=== PATIENT | male | born 1985 | race Two or more races ===

== ENCOUNTER 2020-10-19 10:13 | Outpatient (REF) | payer OTHER, SELFPAY ==
[2020-10-19 11:51] LABS: MANUAL DIFF FLAG NO
[2020-10-19 11:54] LABS: Basophils Absolute Auto 0.1 X10*3/uL (0.0-0.2); Eosinophils Absolute Auto 0.1 X10*3/uL (0.0-0.4); Eosinophils Percent Auto 1.5 % (0-4); Hematocrit 48.6 % (42-52); Hemoglobin 15.6 g/dl (14.0-18.0); Imm Gran Abs Auto 0.01 X10*3/uL (0.00-0.03); Imm Gran Pct Auto 0.2 % (0.0-0.4); Lymphocytes Absolute Auto 2.2 X10*3/uL (1.2-4.9); Lymphocytes Percent Auto 37.1 % (20-40); Mean Corpuscular HGB Conc 32.1 g/dl (31.0-36.0); Mean Corpuscular Hemoglobin 27.9 pg (27.0-33.0); Mean Corpuscular Volume 86.9 fL (80-98); Mean Platelet Volume 11.5 fL (9.4-12.4); Monocytes Absolute Auto 0.5 X10*3/uL (0.1-1.2); Monocytes Percent Auto 7.6 % (2-11); Neutrophils Absolute Auto 3.1 X10*3/uL (2.0-8.3); Neutrophils Percent Auto 52.6 % (45-73); Platelet Count 199 X10*3/uL (160-400); Red Blood Count 5.59 X10*6/uL (4.60-5.80); Red Cell Distribution Width 13.7 % (11.0-16.0)
[2020-10-19 12:15] LABS: Alanine Aminotransferase 31 U/L (0-40); Albumin Level 4.4 g/dL (3.5-5.0); Alkaline Phosphatase 65 U/L (39-117); Anion Gap 13 (12-20); Aspartate Amino Transferase 22 U/L (5-37); Bilirubin Total 0.6 mg/dL (0.0-1.0); Blood Urea Nitrogen 11 mg/dL (9-16); Calcium 9.5 mg/dL (8.4-10.2); Carbon Dioxide 29 mmol/L (22-29); Chloride 103 mmol/L (96-108); Cholesterol 207 mg/dL; Estimated Glomerular Filt Rate > 60; Glucose Fasting 98 mg/dL (60-99); HDL Cholesterol 33 mg/dL; LDL Cholesterol Calculated 159 mg/dl; Potassium 4.3 mmol/L (3.3-5.1); Sodium 141 mmol/L (135-145); Total Protein 7.1 g/dL (6.5-8.0); Triglycerides 79 mg/dL
[2020-10-23 17:11] LABS: Vitamin D 25-OH, D2 <4 ng/mL; Vitamin D 25-OH, D3 16 ng/mL; Vitamin D 25-OH, Total 16 ng/mL (30-100)
== END 2020-10-19 10:14 | disposition home or self-care (01) ==
LOC: HO.LAB 10:13
PROVIDERS: PCP Internal Medicine; Visit Provider Internal Medicine
DX: D64.9 Anemia, unspecified (principal); E55.9 Vitamin D deficiency, unspecified; E78.5 Hyperlipidemia, unspecified; F41.8 Other specified anxiety disorders
CPT/HCPCS: 36415; 80053; 80061; 82306; 85025

== ENCOUNTER 2021-05-21 18:29 | Emergency (ER) | payer OTHER, SELFPAY ==
[2021-05-21 18:36] VITALS: BP 129/79; PULSE 76; RESP 18; TEMP 37.1; O2SAT 98; BMI 26.6
[2021-05-21 19:06] LABS: COVID-19 Test Negative (Negative); IDNOW Serial# 16C4AD1C; Influenza A Negative (Negative); Influenza B2 Negative (Negative)
--- NOTE | 2021-05-21 20:14 | ED.URI ---
HPI - URI/Sore Throat General Chief Complaint: Upper Respiratory Symptoms Stated Complaint: fever/coughing Time Seen by Provider: 05/21/21 19:43 Source: patient Mode of arrival: ambulatory Limitations: no limitations History of Present Illness HPI Narrative: 36 male with history of depression, anxiety, asthma, HLD here with complaints of 5 days of cough, subjective fevers, malaise, ear pain, sore throat. Patient tells me his nephew has similar symptoms at home. Related Data Home Medications Medication Instructions Recorded Confirmed fluticasone propionate 50 2 spray INTRANASAL DAILY 10/19/20 03/08/21 mcg/actuation nasal spray,suspension (Allergy Relief (fluticasone)) Previous Rx's Medication Instructions Recorded atorvastatin 10 mg tablet 10 mg PO BEDTIME 90 Days #90 tab 10/19/20 escitalopram oxalate 10 mg tablet 10 mg PO DAILY #90 tab 01/10/21 cholecalciferol (vitamin D3) 25 25 mcg PO DAILY 90 Days #90 cap 03/08/21 mcg (1,000 unit) capsule clotrimazole 1 % topical cream 1 appl TOPICAL BID 28 Days #30 g 03/08/21 omeprazole 20 mg capsule,delayed 20 mg PO DAILY 90 Days #90 cap 03/08/21 release albuterol sulfate 90 mcg/actuation 2 puff INHALATION Q4-6H PRN #8.5 g 05/21/21 aerosol inhaler azithromycin 250 mg tablet See Rx Instructions .ROUTE 05/21/21 .COMPLEX #6 tab prednisone 20 mg tablet 40 mg PO DAILY #10 tab 05/21/21 Allergies Allergy/AdvReac Type Severity Reaction Status Date / Time Penicillins [PENICILLINS] Allergy Intermediate HIVES Verified 03/08/21 15:22 Review of Systems Review of Systems: Yes all other systems are reviewed and are negative Constitutional: Constitutional: Reports no additional constitutional complaints, Denies body ache(s), Denies chills, Reports fever(s) (Subjective), Denies headache(s), Reports malaise and Denies weakness Eyes: Eyes: Reports no additional eye complaints and Denies change in vision ENT: Reports system reviewed and no additional complaints, except as documented, Denies dizziness, Reports otalgia, Denies headache(s), Denies nasal congestion, Denies nasal discharge, Denies neck pain and Reports sore throat Cardiovascular: Cardiovascular: Reports no additional cardiovascular complaints, Denies chest pain, Denies leg edema and Denies dyspnea Respiratory: Respiratory: Reports no additional respiratory complaints, Reports cough and Denies dyspnea Gastrointestinal: Gastrointestinal: Reports no additional gastrointestinal complaints, Denies abdominal pain, Denies diarrhea, Denies nausea and Denies vomiting Genitourinary: Genitourinary: Denies urinary incontinence Musculoskeletal: Musculoskeletal: Reports no additional musculoskeletal complaints, Denies back pain, Denies arthralgias, Denies joint swelling, Denies neck pain, Denies numbness and Denies tingling Integumentary/Breasts: Skin/Breast: Reports system reviewed and no additional complaints, except as docu and Denies rash Neurologic: Reports system reviewed and no additional complaints, except as documented, Denies Abnormal speech present, Denies dizziness, Denies headache(s), Denies numbness, Denies tingling and Denies weakness PMFSH Past Medical History Attestation statement: The following information was validated with the patient. Source: old records reviewed and nursing notes reviewed Medical History Asthma Chronic allergic rhinitis due to pollen Chronic GERD Depression with anxiety Dyslipidemia ROSE (generalized anxiety disorder) Hypovitaminosis D Mild major depression, single episode Physical exam Surgical History No pertinent past surgical history Family History Family History Mother Diabetes Hypertension Father Diabetes Family/Other Mental health disorder Social History Social History Housing: Apartment Alcohol intake: never Patient Tobacco Use Status: Never used Tobacco e-Cigarette/Vaping Use: Never Used Second Hand Smoke Exposure: No Advance Directives: No Advance Directives Information Provided: No service: No Current occupational status: unemployed Physical Exam Vital Signs: Vital Signs: Last Vital Signs Temp 98.8 F 05/21/21 18:36 Pulse 76 05/21/21 18:36 Resp 18 05/21/21 18:36 BP 129/79 05/21/21 18:36 Pulse Ox 98 05/21/21 18:36 BMI result Body Mass Index 26.6 Const: General: cooperative, healthy appearing, comfortable and no acute distress Orientation/consciousness: patient oriented x3 Limitations: no limitations HEENT: Head: Yes normal to inspection Ears: hearing grossly normal bilaterally, TM normal on the left and TM abnormal bulging, wth effusion and erythematous General nose exam: Normal external nose present Face and sinus: Yes normal facial exam Mouth: Normal oral and palatal mucosa present Throat: Yes posterior oropharynx normal, Yes tonsils normal and Yes uvula midline Eyes: General: appearance normal, both eyes and all related structures Pupils: Equal, round and reactive pupils present Neck: Neck: Yes normal visual inspection, Yes full ROM, Yes no lymphadenopathy and Yes no meningeal signs Chest: Chest palpation & inspection: normal inspection of the chest Resp: Other: Mild expiratory wheezing throughout Effort & Inspection: normal respiratory effort Cardio: Rate: regular rate Rhythm: regular rhythm Peripheral pulses: Peripheral pulses 2+ throughout GI: Inspection: Yes normal to inspection Palpation (GI): Soft to palpation and nontender Auscultation: normal bowel sounds Back/Spine/Pelvis: Thoracic/Lumbar Spine: thoracic and lumbar spine normal to inspection Skin: General skin exam: no rashes or lesions noted Neuro: General: patient oriented x3, no meningeal signs, no focal motor deficits and normal sensation to monofilament Cranial nerves: Yes Equal, round and reactive pupils present Cognition (Neuro): normal cognition Speech: No Abnormal speech present Gait exam (Neuro): Normal gait present Motor exam (neuro): 5/5 motor strength present throughout Extrem: General: Yes normal to inspection Course Course Course Narrative: 36-year-old male here with reports of 5 days of cough, subjective fevers, sore throat, otalgia, malaise. Exam is consistent with a right otitis media. Flu and COVID testing are negative. The patient does has mild expiratory wheezing throughout he may have component of bronchitis which is triggering his asthma. Will revise him with an albuterol MDI, prednisone for 5 days and antibiotics. Reviewed worrisome signs and symptoms and when to return to the emergency department. Comfortable discharge home. MDM - URI/Sore Throat Medical Records Attestation: I reviewed the patient's medical records. Lab Data Attestation: I reviewed the patient's lab results. Labs: Lab Results 05/21/21 05/21/21 Range/Units 18:42 18:42 COVID-19 ([facility]) Negative (Negative) COVID-19 Clin Com See Note Influenza Type A ([facility]A) Negative (Negative) Influenza Type B ([facility]IKA) Negative (Negative) Influenza A & B Note See Note Discharge Plan Discharge Clinical Impression: Otitis media, Bronchitis, Asthma Patient Disposition: Home, Self-Care Instructions: Asthma (ED), Ear Infection (ED), Acute Bronchitis (ED) Additional Instructions: Testing for flu and COVID are negative Your have a right ear infection Prescriptions: New azithromycin 250 mg tablet See Rx Instructions .ROUTE .COMPLEX Qty: 6 0RF Rx Instructions: For 250 mg dose pack: take 500 mg today (day 1), then 250 mg for 4 days (days 2-5) prednisone 20 mg tablet 40 mg PO DAILY Qty: 10 0RF albuterol sulfate 90 mcg/actuation HFA aerosol inhaler 2 puff inhalation Q4-6H PRN (Reason: shortness of breath or wheezing) Qty: 8.5 0RF No Action escitalopram oxalate 10 mg tablet 10 mg PO DAILY Qty: 90 2RF fluticasone propionate [Allergy Relief (fluticasone)] 50 mcg/actuation spray,suspension 2 spray intranasal DAILY 0RF Rx Instructions: administer into each nostril atorvastatin 10 mg tablet 10 mg PO BEDTIME 90 Days Qty: 90 3RF cholecalciferol (vitamin D3) 25 mcg (1,000 unit) capsule 25 mcg PO DAILY 90 Days Qty: 90 1RF clotrimazole 1 % cream 1 appl topical BID 28 Days Qty: 30 1RF omeprazole 20 mg capsule,delayed release(DR/EC) 20 mg PO DAILY 90 Days Qty: 90 1RF Referrals: Liberty Galicia MD [Primary Care Provider] - 5 days Stand Alone Forms: Work/School Release Interventions: ED Discharge Assessment Last Done: 05/21/21 20:23 Discharge Date/Time: 05/21/21 20:25
== END 2021-05-21 20:25 | disposition home or self-care (01) ==
PROVIDERS: Emergency Provider Internal Medicine; PCP Internal Medicine
DX: H66.93 Otitis media, unspecified, bilateral (principal); J40 Bronchitis, not specified as acute or chronic; J02.9 Acute pharyngitis, unspecified; R50.9 Fever, unspecified; R05.9 Cough, unspecified; M79.10 Myalgia, unspecified site; Z20.822 Contact with and (suspected) exposure to COVID-19; Z79.899 Other long term (current) drug therapy
CPT/HCPCS: 87502; 87635; 99283

== ENCOUNTER 2021-07-18 11:13 | Outpatient (REF) | payer OTHER, SELFPAY ==
[2021-07-18 12:21] LABS: Alanine Aminotransferase 46 U/L (0-40); Albumin Level 4.4 g/dL (3.5-5.0); Alkaline Phosphatase 64 U/L (39-117); Anion Gap 11 (12-20); Aspartate Amino Transferase 22 U/L (5-37); Bilirubin Total 0.6 mg/dL (0.0-1.0); Blood Urea Nitrogen 13 mg/dL (9-16); Calcium 9.1 mg/dL (8.4-10.2); Carbon Dioxide 30 mmol/L (22-29); Chloride 104 mmol/L (96-108); Cholesterol 159 mg/dL; Estimated Glomerular Filt Rate > 60; Glucose Fasting 96 mg/dL (60-99); HDL Cholesterol 32 mg/dL; LDL Cholesterol Calculated 109 mg/dl; Potassium 4.4 mmol/L (3.3-5.1); Sodium 141 mmol/L (135-145); Total Protein 7.1 g/dL (6.5-8.0); Triglycerides 91 mg/dL
[2021-07-21 08:57] LABS: TS Negative Control Passed; TS Panel A 0; TS Panel B 1; TS Positive Control Passed; TSpotTB Negative (Negative)
[2021-07-22 13:07] LABS: Vitamin D 25-OH, D2 <4 ng/mL; Vitamin D 25-OH, D3 21 ng/mL; Vitamin D 25-OH, Total 21 ng/mL (30-100)
== END 2021-07-18 11:14 | disposition home or self-care (01) ==
LOC: HO.LAB 11:13
PROVIDERS: PCP Internal Medicine; Visit Provider Internal Medicine
DX: Z11.1 Encounter for screening for respiratory tuberculosis (principal); E78.5 Hyperlipidemia, unspecified; E55.9 Vitamin D deficiency, unspecified; F32.0 Major depressive disorder, single episode, mild
CPT/HCPCS: 36415; 80053; 80061; 82306; 86481

== ENCOUNTER 2021-07-31 12:42 | Emergency (ER) | payer OTHER, SELFPAY ==
[2021-07-31 12:46] VITALS: BP 140/82; PULSE 93; RESP 20; TEMP 36.4; O2SAT 97; BMI 27.6
--- NOTE | 2021-07-31 13:21 | ED_ITS ---
HPI - General Adult General Chief complaint: Extremity Injury, Lower Stated complaint: l big toe inj Time Seen by Provider: 07/31/21 13:21 Source: patient Mode of arrival: ambulatory Limitations: no limitations History of Present Illness HPI narrative: Patient is a 36 year old male presenting to the emergency department today with left big toe pain. Patient states that he injured his left great toe a month ago and has had intermittent pus coming from the injury. Patient denies any dizziness, lightheadedness, abdominal pain, nausea, vomiting, fever, chills, blurry vision, double vision, loss of vision, chest pain, difficulty breathing, shortness of breath, back pain, night sweats, pain with urination, increased urinary frequency, increased urinary urgency, blood in his urine or stool, syncope or a near syncopal episode, bowel incontinence, bladder incontinence, bowel retention, bladder retention, or any other complaints at this time. Onset (ago): month(s) (1) Location: left and lower extremity (great toe) Radiation: non-radiation Severity: mild Severity scale (1-10): 2 Quality: dull Pain Consistency: constant Relieving factors: none Exacerbating factors: none Associated symptoms: denies other symptoms Treatments prior to arrival: none Related Data Previous Rx's Medication Instructions Recorded atorvastatin 10 mg tablet 10 mg PO BEDTIME 90 days #90 tabs 10/19/20 escitalopram oxalate 10 mg tablet 10 mg PO DAILY #90 tabs 01/10/21 omeprazole 20 mg capsule,delayed 20 mg PO DAILY 90 days #90 caps 03/08/21 release albuterol sulfate 90 mcg/actuation 2 puff inhalation Q4-6H PRN 05/21/21 aerosol inhaler shortness of breath or wheezing #8.5 grams fluticasone propionate 50 2 spray intranasal DAILY 30 days 07/18/21 mcg/actuation nasal #16 grams spray,suspension (Allergy Relief (fluticasone)) cholecalciferol (vitamin D3) 25 25 mcg PO DAILY 90 days #90 caps 07/23/21 mcg (1,000 unit) capsule cephalexin 500 mg capsule 500 mg PO Q6H 7 days #28 caps 07/31/21 Allergies Allergy/AdvReac Type Severity Reaction Status Date / Time Penicillins [PENICILLINS] Allergy Intermediate HIVES Verified 07/18/21 15:28 Review of Systems Constitutional: Constitutional: Reports no additional constitutional complaints, Denies chills, Denies fever(s) and Denies night sweats Eyes: Eyes: Reports no additional eye complaints, Denies blurry vision, Denies change in vision, Denies diplopia, Denies eye discharge, Denies loss of vision and Denies eye pain ENT: Denies dizziness Cardiovascular: Cardiovascular: Reports no additional cardiovascular complaints, Denies chest pain, Denies lightheadedness, Denies Loss of Consciousness and Denies dyspnea Respiratory: Respiratory: Reports no additional respiratory complaints and Denies dyspnea Gastrointestinal: Gastrointestinal: Reports no additional gastrointestinal complaints, Denies abdominal pain, Denies melena, Denies hematochezia, Denies change in bowel habits and Denies change in stool character Genitourinary: Genitourinary: Reports no additional male genitourinary complaints, Denies hematuria, Denies oliguria, Denies difficulty urinating, Denies dysuria, Denies urinary frequency, Denies urinary hesitancy, Denies urinary incontinence and Denies urinary urgency Musculoskeletal: Musculoskeletal: Reports no additional musculoskeletal complaints, Denies numbness and Denies tingling Integumentary/Breasts: Comments: left great toe infection Neurologic: Denies dizziness, Denies loss of vision, Denies numbness and Denies tingling Psychiatric: Psychiatric: Reports no additional psychiatric complaints Endocrine: Endocrine: Reports no additional endocrine complaints Hematologic/Lymphatic: Hematologic/Lymphatic: Reports no additional hematologic/lymphatic complaints Allergic/Immunologic: Allergic/Immunologic: Reports no additional allergic/immunologic complaints PMFSH Past Medical History Attestation statement: The following information was validated with the patient. Source: old records reviewed Medical History Asthma Depression with anxiety Surgical History No pertinent past surgical history Family History Family History Mother Diabetes Hypertension Father Diabetes Family/Other Mental health disorder Social History Social History Housing: Apartment Alcohol intake: never Patient Tobacco Use Status: Never used Tobacco e-Cigarette/Vaping Use: Never Used Second Hand Smoke Exposure: No Advance Directives: No Advance Directives Information Provided: No service: No Current occupational status: unemployed Cognitive needs: No Hearing needs: No Vision needs: No Physical Exam ED Vital Signs: Vital Signs - 24 hr 07/31/21 12:46 Temperature 97.6 F Pulse Rate 93 Respiratory Rate 20 Blood Pressure 140/82 H Pulse Oximetry 97 Oxygen Delivery Method Room Air BMI result Body Mass Index 27.6 Const General: cooperative, no acute distress, alert and awake Nutritional Appearance: well nourished Orientation/consciousness: patient oriented x3 Limitations: no limitations HENMT Head: Yes normal to inspection and Yes atraumatic Ears: hearing grossly normal bilaterally and external ears normal General nose exam: Normal external nose present, no nasal discharge noted and no epistaxis Face and sinus: Yes normal facial exam, No abrasion and No laceration Mouth: Normal oral and palatal mucosa present, no drooling and no muffled voice Eyes General: appearance normal, both eyes and all related structures Periorbital: periorbital findings normal Eyelids: Yes eyelids normal Conjunctivae: conjunctivae normal Pupils: Equal, round and reactive pupils present EOM: EOMs intact bilaterally Neck Neck: Yes normal visual inspection, Yes full ROM and Yes no lymphadenopathy Chest Chest palpation & inspection: normal inspection of the chest Resp Effort & Inspection: normal respiratory effort and able to speak in complete sentences Auscultation: clear to auscultation bilaterally Cardio Rate: regular rate Rhythm: regular rhythm GI Inspection: Yes normal to inspection Neuro General: patient oriented x3 and moves all extremities Cranial nerves: Yes Equal, round and reactive pupils present Cognition (Neuro): normal cognition Motor exam (neuro): 5/5 motor strength present throughout Sensory Exam: Normal double simultaneous stimulation for sensation Coordination: [id number] test normal Extrem Other: minimal redness to the medial aspect of the left great toe, no active draining or area of fluctuanse General: Yes full ROM and Yes capillary refill normal Psych Appearance: grossly normal Mental Status: mental status grossly normal Affect: normal affect Attitude: cooperative Thought process: Normal thought process present Thought content: Normal thought content present Insight: Good insight present (Psych) Medical Decision Making MDM Narrative Medical decision making narrative: Patient is a 36 year old male presenting to the emergency department today with left great toe pain. Patient's physical exam showed minimal redness to the medial aspect of the left great toe with no active draining. I explained my physical exam findings to the patient. I answered all questions asked by the patient. I stressed the importance of the patient taking his medication as prescribed. I stressed the importance of the patient following up with his primary care provider. I stressed the importance of the patient returning to the emergency department immediately if his symptoms were to worsen or if he were to develop any dizziness, shortness of breath, difficulty breathing, chest pain, blurry vision, loss of vision, nausea, vomiting, abdominal pain, fever, chills, back pain, or any other complaints. Patient verbalized agreement and understanding with this treatment plan and discharge. Differential Diagnosis Differential Diagnosis: left great toe infection Medical Records Medical records reviewed: Yes I reviewed the patient's medical records. Discharge Plan Discharge Clinical Impression: Infection of toe Patient Disposition: Home, Self-Care Instructions: Cellulitis (ED) Additional Instructions: Follow up with your primary care provider. Return to the emergency department immediately if your symptoms worsen or if you develop any dizziness, shortness of breath, difficulty breathing, chest pain, blurry vision, loss of vision, nausea, vomiting, abdominal pain, fever, chills, back pain, or any other complaints. Prescriptions: New cephalexin 500 mg capsule 500 mg PO Q6H 7 Days Qty: 28 0RF No Action escitalopram oxalate 10 mg tablet 10 mg PO DAILY Qty: 90 2RF cholecalciferol (vitamin D3) 25 mcg (1,000 unit) capsule 25 mcg PO DAILY 90 Days Qty: 90 1RF albuterol sulfate 90 mcg/actuation HFA aerosol inhaler 2 puff inhalation Q4-6H PRN (Reason: shortness of breath or wheezing) Qty: 8.5 0RF atorvastatin 10 mg tablet 10 mg PO BEDTIME 90 Days Qty: 90 3RF omeprazole 20 mg capsule,delayed release(DR/EC) 20 mg PO DAILY 90 Days Qty: 90 1RF fluticasone propionate [Allergy Relief (fluticasone)] 50 mcg/actuation spray,suspension 2 spray intranasal DAILY 30 Days Qty: 16 1RF Rx Instructions: administer into each nostril Referrals: Jason Porras DPM [Physician] - Liberty Galicia MD [Primary Care Provider] - Interventions: ED Discharge Assessment Last Done: 07/31/21 13:37 Discharge Date/Time: 07/31/21 13:37 Print Language: Bhutanese
== END 2021-07-31 13:37 | disposition home or self-care (01) ==
PROVIDERS: Emergency Provider Emergency Medicine; PCP Internal Medicine
DX: L08.9 Local infection of the skin and subcutaneous tissue, unspecified (principal); Z79.899 Other long term (current) drug therapy
CPT/HCPCS: 99283

== ENCOUNTER 2022-03-15 16:27 | Emergency (ER) | payer OTHER, SELFPAY ==
--- NOTE | 2022-03-15 16:33 | ED_ITS ---
HPI - General Adult General Chief complaint: Medical Clearance <LISA Key - Last Filed: 03/15/22 16:35> Stated complaint: body aches, mild fever, cough <LISA Key - Last Filed: 03/15/22 16:35> Time Seen by Provider: 03/15/22 16:57 <LISA Key - Last Filed: 03/15/22 16:35> History of Present Illness HPI narrative: patient complains of cough and runny nose for less than 1 day, took a COVID test at home and it was positive and wants to get a confirmed an to be checked No chest pain no shortness of breath no nausea no vomiting no fainting no feeling faint no weakness <LISA Haile - Last Filed: 04/29/22 13:05> Related Data Home medications: Previous Rx's Medication Instructions Recorded albuterol sulfate 90 mcg/actuation 2 puff inhalation Q4-6H PRN 05/21/21 aerosol inhaler shortness of breath or wheezing #8.5 grams fluticasone propionate 50 2 spray intranasal DAILY 30 days 07/18/21 mcg/actuation nasal #16 grams spray,suspension (Allergy Relief (fluticasone)) cholecalciferol (vitamin D3) 25 25 mcg PO DAILY 90 days #90 caps 07/23/21 mcg (1,000 unit) capsule cephalexin 500 mg capsule 500 mg PO Q6H 7 days #28 caps 07/31/21 omeprazole 20 mg capsule,delayed 20 mg PO DAILY 90 days #90 caps 09/29/21 release atorvastatin 10 mg tablet 10 mg PO BEDTIME 90 days #90 tabs 11/01/21 escitalopram oxalate 10 mg tablet 10 mg PO DAILY #90 tabs 11/01/21 nirmatrelvir 300 mg (150 mg See Rx Instructions PO .COMPLEX 03/15/22 x2)-ritonavir 100 mg tablet,dose #30 ea pack(EUA) (Paxlovid) <LISA Key - Last Filed: 03/15/22 16:35> Allergies/adverse reactions: Allergies Allergy/AdvReac Type Severity Reaction Status Date / Time Penicillins [PENICILLINS] Allergy Intermediate HIVES Verified 03/15/22 16:35 <LISA Key - Last Filed: 03/15/22 16:35> [facility] Past Medical History Source: nursing notes reviewed <LISA Haile - Last Filed: 04/29/22 13:05> Medical History: Medical History Asthma Depression with anxiety <LISA Key - Last Filed: 03/15/22 16:35> Surgical History: Surgical History No pertinent past surgical history <LISA Key - Last Filed: 03/15/22 16:35> Family History Family History: Family History Mother Diabetes Hypertension Father Diabetes Family/Other Mental health disorder <LISA Key - Last Filed: 03/15/22 16:35> Social History Social History: Social History Housing: Apartment Alcohol intake: never Patient Tobacco Use Status: Never used Tobacco e-Cigarette/Vaping Use: Never Used Second Hand Smoke Exposure: No Advance Directives: No Advance Directives Information Provided: No service: No Current occupational status: unemployed Cognitive needs: No Hearing needs: No Vision needs: No <LISA Key - Last Filed: 03/15/22 16:35> Physical Exam ED Vital Signs: Vital Signs - 24 hr 03/15/22 16:35 Temperature 98 F Pulse Rate 89 Respiratory Rate 18 Blood Pressure 138/52 L Pulse Oximetry 99 Oxygen Delivery Method Room Air BMI result Body Mass Index 27.3 <LISA Key - Last Filed: 03/15/22 16:35> Vital Signs - 24 hr 03/15/22 16:35 Temperature 98 F Pulse Rate 89 Respiratory Rate 18 Blood Pressure 138/52 L Pulse Oximetry 99 Oxygen Delivery Method Room Air BMI result Body Mass Index 27.3 <LISA Haile - Last Filed: 04/29/22 13:05> General appearance no distress Eyes no redness or discharge The sinuses nontender The pharynx is clear no redness swelling or exudate voice normal membranes moist Neck is supple Chest clear to auscultation bilateral Heart no murmur Abdomen soft nontender Extremities full range of motion x4 Skin no rash <LISA Haile Last Filed: 04/29/22 13:05> Course Course Course Narrative: RME - 37 yo male presenting to the ER c/o body aches, fevers, diarrhea and cough that started 2 days ago. Nephew with similar symptoms who has COVID. He tested himself at home and it was positive. He needs proof for his job. 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 Will get COVID swab and d/c home. <LISA Key Last Filed: 03/15/22 16:35> RME - 37 yo male presenting to the ER c/o body aches, fevers, diarrhea and cough that started 2 days ago. Nephew with similar symptoms who has COVID. He tested himself at home and it was positive. He needs proof for his job. 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 Will get COVID swab and d/c home. Well-appearing patient COVID positive is prescribed Paxlovid and discharged <LISA Haile Last Filed: 04/29/22 13:05> Medical Decision Making Lab Data Labs: Lab Results 03/15/22 Range/Units 16:55 COVID-19 ([facility]) Positive A (Negative) COVID-19 Clin Com See Note <LISA Key - Last Filed: 03/15/22 16:35> Lab Results 03/15/22 Range/Units 16:55 COVID-19 (VERA) Positive A (Negative) COVID-19 Clin Com See Note <LISA Haile Last Filed: 04/29/22 13:05> Discharge Plan Discharge Clinical Impression: COVID-19 <LISA Key Last Filed: 03/15/22 16:35> Patient Disposition: Home, Self-Care <LISA Key Last Filed: 03/15/22 16:35> Additional Instructions: you tested positive for COVID which is very infectious so I wrote you for week off work Because you have asthma which may put you at risk for breathing problems I wrote the prescription for CO VID treatmenpt which paxlovid and is shown to prevent dangerous illness or If needed use Tylenol or Motrin for any aches and pains Return to the ER any time any worse condition or any concerns <LISA Key - Last Filed: 03/15/22 16:35> Prescriptions: New Paxlovid (EUA) 300 mg (150 mg x 2)-100 mg tablets,dose pack See Rx Instructions .ROUTE .COMPLEX Qty: 30 0RF Rx Instructions: take TWO 150 mg tablets of nirmatrelvir with ONE 100 mg tablet of ritonavir twice daily for 5 days No Action cholecalciferol (vitamin D3) 25 mcg (1,000 unit) capsule 25 mcg PO DAILY 90 Days Qty: 90 1RF omeprazole 20 mg capsule,delayed release(DR/EC) 20 mg PO DAILY 90 Days Qty: 90 1RF atorvastatin 10 mg tablet 10 mg PO BEDTIME 90 Days Qty: 90 3RF escitalopram oxalate 10 mg tablet 10 mg PO DAILY Qty: 90 2RF albuterol sulfate 90 mcg/actuation HFA aerosol inhaler 2 puff inhalation Q4-6H PRN (Reason: shortness of breath or wheezing) Qty: 8.5 0RF cephalexin 500 mg capsule 500 mg PO Q6H 7 Days Qty: 28 0RF fluticasone propionate [Allergy Relief (fluticasone)] 50 mcg/actuation spray,suspension 2 spray intranasal DAILY 30 Days Qty: 16 1RF Rx Instructions: administer into each nostril <LISA Key - Last Filed: 03/15/22 16:35> Stand Alone Forms: Work/School Release <LISA Key - Last Filed: 03/15/22 16:35> Interventions: ED Discharge Assessment Last Done: 03/15/22 17:59 <LISA Key - Last Filed: 03/15/22 16:35> Discharge Date/Time: 03/15/22 18:03 <LISA Key - Last Filed: 03/15/22 16:35>
[2022-03-15 16:35] VITALS: BP 138/52; PULSE 89; RESP 18; TEMP 36.6; O2SAT 99; BMI 27.3
[2022-03-15 17:14] LABS: COVID-19 Test Positive (Negative)
== END 2022-03-15 18:03 | disposition home or self-care (01) ==
PROVIDERS: Physician Assistant; Emergency Provider Emergency Medicine; PCP Internal Medicine
DX: U07.1 COVID-19 (principal)
CPT/HCPCS: 87635; 99282; 99283

== ENCOUNTER 2023-01-22 16:25 | Emergency (ER) | payer OTHER, SELFPAY ==
[2023-01-22 16:49] VITALS: BP 135/87; PULSE 113; RESP 18; TEMP 36.4; O2SAT 97; BMI 27.0
--- NOTE | 2023-01-22 16:49 | ED_ITS ---
HPI - Nausea/Vomiting/Diarrhea General Chief complaint: Nausea/Vomiting/Diarrhea Stated complaint: not feeling well, diarrhea Time Seen by Provider: 01/22/23 20:12 Source: patient and RN notes reviewed Mode of arrival: ambulatory Limitations: no limitations History of Present Illness HPI Narrative: Pt is a 38yo male who presents to the ED with 5 days of diarrhea and a runny nose. Pt states that he had the flu last Saturday and Saturday but that those symptoms have all resolved. He notes 2 BM per day without blood. He denies any SOB, CP, n/v, or chills. Associated nausea: No Related Data Previous Rx's Medication Instructions Recorded albuterol sulfate 90 mcg/actuation 2 puff inhalation Q4-6H PRN 05/21/21 aerosol inhaler shortness of breath or wheezing #8.5 grams fluticasone propionate 50 2 spray intranasal DAILY 30 days 07/18/21 mcg/actuation nasal #16 grams spray,suspension (Allergy Relief (fluticasone)) cholecalciferol (vitamin D3) 25 25 mcg PO DAILY 90 days #90 caps 07/23/21 mcg (1,000 unit) capsule cephalexin 500 mg capsule 500 mg PO Q6H 7 days #28 caps 07/31/21 omeprazole 20 mg capsule,delayed 20 mg PO DAILY 90 days #90 caps 09/29/21 release atorvastatin 10 mg tablet 10 mg PO BEDTIME 90 days #90 tabs 11/01/21 escitalopram oxalate 10 mg tablet 10 mg PO DAILY #90 tabs 11/01/21 nirmatrelvir 300 mg (150 mg See Rx Instructions PO .COMPLEX 03/15/22 x2)-ritonavir 100 mg tablet,dose #30 ea pack (Paxlovid) loperamide 2 mg tablet (Imodium 2 mg PO Q4H PRN loose stool #20 01/22/23 A-D) tabs Allergies Allergy/AdvReac Type Severity Reaction Status Date / Time Penicillins [PENICILLINS] Allergy Intermediate HIVES Verified 01/22/23 16:49 Review of Systems 2 Constitutional: Constitutional: Denies body ache(s), Denies chills and Denies fever(s) Cardiovascular: Cardiovascular: Denies chest pain Respiratory: Respiratory: Denies chest congestion and Denies cough Gastrointestinal: Gastrointestinal: Denies abdominal pain, Denies nausea and Denies vomiting Musculoskeletal: Musculoskeletal: Denies back pain Integumentary/Breasts: Skin/Breast: Denies rash PMFSH Past Medical History Medical History Asthma Depression with anxiety Surgical History No pertinent past surgical history Family History Family History Mother Diabetes Hypertension Father Diabetes Family/Other Mental health disorder Social History Social History Housing: Apartment Alcohol intake: never Patient Tobacco Use Status: Never used Tobacco e-Cigarette/Vaping Use: Never Used Second Hand Smoke Exposure: No Advance Directives: No Advance Directives Information Provided: No service: No Current occupational status: unemployed Cognitive needs: No Hearing needs: No Vision needs: No Physical Exam 2 Vital Signs: Vital Signs: Last Vital Signs Temp 97.9 F 01/22/23 19:31 Pulse 87 01/22/23 19:31 Resp 16 01/22/23 19:31 BP 121/79 01/22/23 19:31 Pulse Ox 97 01/22/23 19:31 O2 Del Method Room Air 01/22/23 19:31 BMI result Body Mass Index 27.0 Const: General: healthy appearing, comfortable, no acute distress, alert and awake Nutritional Appearance: well nourished Orientation/consciousness: p atient oriented x3 HEENT: Head: Yes normocephalic and Yes atraumatic Eyes: Eyelids: Yes eyelids normal Conjunctivae: conjunctivae normal S clerae: sclerae normal Corneas: corneas normal Pupils: Equal, round and reactive pupils present EOM: EOMs intact bilaterally Neck: Neck: Yes full ROM Resp: Effort & Inspection: normal respiratory effort, able to speak in complete sentences, no audible wheezes and not labored Auscultation: clear to auscultation bilaterally GI: Inspection: No distended Palpation (GI): Soft to palpation, not firm, nontender, no guarding and not rigid Skin: General skin exam: elasticity normal Neuro: General: patient oriented x3 Cranial nerves: Yes Equal, round and reactive pupils present and Yes Bilaterally intact EOM present Cognition (Neuro): normal cognition Course Course Course Narrative: RME: 38 yo M w/PMHx ROSE, HLD, c/o rhinorrhea, sneezing, coughing, diarrhea x few days denies abdominal pain, fever, urine sx, N/V Labs, viral testing ordered Full HPI, ROS and PE to be performed by primary ED provider. Medical Decision Making Medical Decision Making [facility] Narrative: 38-year-old male presents for evaluation of diarrhea Raynaud's. He has no abdominal pain or tenderness on exam. No risk factors for C diff, no recent travel. This is likely related to his recent viral illness. Will treat with Imodium only. I have a low suspicion for bacterial infection given the reassuring abdominal exam, no leukocytosis, no fever and recent virus Differential Diagnosis Differential Diagnoses: The differential diagnosis associated with the presentation includes Acute diarrhea Colitis Diverticulitis Influenza Lab Data [facility] Lab Attestation statement: I reviewed the patient's lab results. No leukocytosis or anemia. No electrolyte abnormalities. Normal renal function. 01/22/23 16:56 01/22/23 16:56 Labs: Lab Results 01/22/23 Range/Units 16:56 WBC 7.3 (4.8-10.8) X10*3/uL RBC 5.72 (4.60-5.80) X10*6/uL Hgb 15.9 (14.0-18.0) g/dl Hct 48.9 (42.0-52.0) % MCV 85.5 (80.0-98.0) fL MCH 27.8 (27.0-33.0) pg MCHC 32.5 (31.0-36.0) g/dl RDW 13.2 (11.0-16.0) % Plt Count 204 (160-400) X10*3/uL MPV 11.6 (9.4-12.4) fL Immature Gran % (Auto) 0.1 (0.0-0.4) % Neut % (Auto) 56.5 (45-73) % Lymph % (Auto) 34.2 (20-40) % Barber % (Auto) 7.6 (2-11) % Eos % (Auto) 0.8 (0-4) % Baso % (Auto) 0.8 (0-2) % Lymph # (Auto) 2.5 (1.2-4.9) X10*3/uL Barber # (Auto) 0.6 (0.1-1.2) X10*3/uL Eos # (Auto) 0.1 (0.0-0.4) X10*3/uL Baso # (Auto) 0.1 (0.0-0.2) X10*3/uL Abs Immat Gran (auto) 0.01 (0.00-0.03) X10*3/uL Absolute Neuts (auto) 4.1 (2.0-8.3) x10*3/uL Absolute Nucleated RBC 0.000 (0.0-0.012) X10*3/uL Nucleated RBC % (auto) 0.0 (0.0-0.2) /100WBC Sodium 143 (135-145) mmol/L Potassium 3.7 (3.3-5.1) mmol/L Chloride 105 (96-108) mmol/L Carbon Dioxide 28 (22-29) mmol/L Anion Gap 14 (12-20) BUN 11 (9-16) mg/dL Creatinine 1.09 (0.5-1.4) mg/dL Estim Creat Clear Calc 88.0 Estimated GFR > 60 Random Glucose 140 H (60-115) mg/dL Calcium 9.4 (8.4-10.2) mg/dL Magnesium 2.3 (1.6-2.6) mg/dL Total Bilirubin 0.7 (0.0-1.0) mg/dL Direct Bilirubin 0.2 (0.0-0.5) mg/dL AST 20 (5-37) U/L ALT 26 (0-40) U/L Alkaline Phosphatase 71 (39-117) U/L Total Protein 7.7 (6.5-8.0) g/dL Albumin 4.4 (3.5-5.0) g/dL Lipase 27 (8-78) U/L Influenza Type A (PCR) NEGATIVE (Negative) Influenza Type B (PCR) NEGATIVE (Negative) RSV RNA Qual (PCR) NEGATIVE (Negative) SARS-CoV-2 RNA (RT-PCR) NEGATIVE (Negative) Tests considered The following testing was considered but not selected: Consider CT abdomen pelvis over this was deferred as the patient has a reassuring exam and reassuring labs with stable vital signs. Discharge Plan Discharge Clinical Impression: Diarrhea Patient Disposition: Home, Self-Care Instructions: Acute Diarrhea (ED) Additional Instructions: Your blood work was reassuring today. Your diarrhea is likely related to a virus and possibly still related to the flu that you had over the weekend Drink lots of fluids to stay hydrated A diet of bananas, rice, applesauce, toast will help slow diarrhea Use Imodium as prescribed Return for new or worsening symptoms, especially if you have severe abdominal pain or fevers/bloody diarrhea Prescriptions: New loperamide [Imodium A-D] 2 mg tablet 2 mg PO Q4H PRN (Reason: loose stool) Qty: 20 0RF Rx Instructions: administer after each loose stool until symptoms controlled; do not exceed 8 mg per 24 hrs No Action cholecalciferol (vitamin D3) 25 mcg (1,000 unit) capsule 25 mcg PO DAILY 90 Days Qty: 90 1RF omeprazole 20 mg capsule,delayed release(DR/EC) 20 mg PO DAILY 90 Days Qty: 90 1RF atorvastatin 10 mg tablet 10 mg PO BEDTIME 90 Days Qty: 90 3RF escitalopram oxalate 10 mg tablet 10 mg PO DAILY Qty: 90 2RF Paxlovid 300 mg (150 mg x 2)-100 mg tablets,dose pack See Rx Instructions .ROUTE .COMPLEX Qty: 30 0RF Rx Instructions: take TWO 150 mg tablets of nirmatrelvir with ONE 100 mg tablet of ritonavir twice daily for 5 days albuterol sulfate 90 mcg/actuation HFA aerosol inhaler 2 puff inhalation Q4-6H PRN (Reason: shortness of breath or wheezing) Qty: 8.5 0RF cephalexin 500 mg capsule 500 mg PO Q6H 7 Days Qty: 28 0RF fluticasone propionate [Allergy Relief (fluticasone)] 50 mcg/actuation spray,suspension 2 spray intranasal DAILY 30 Days Qty: 16 1RF Rx Instructions: administer into each nostril Stand Alone Forms: Work/School Release
[2023-01-22 17:09] LABS: MANUAL DIFF FLAG NO
[2023-01-22 17:14] LABS: Basophils Absolute Auto 0.1 X10*3/uL (0.0-0.2); Basophils Percent Auto 0.8 % (0-2); Eosinophils Absolute Auto 0.1 X10*3/uL (0.0-0.4); Eosinophils Percent Auto 0.8 % (0-4); Hematocrit 48.9 % (42.0-52.0); Hemoglobin 15.9 g/dl (14.0-18.0); Imm Gran Abs Auto 0.01 X10*3/uL (0.00-0.03); Imm Gran Pct Auto 0.1 % (0.0-0.4); Lymphocytes Absolute Auto 2.5 X10*3/uL (1.2-4.9); Lymphocytes Percent Auto 34.2 % (20-40); Mean Corpuscular HGB Conc 32.5 g/dl (31.0-36.0); Mean Corpuscular Hemoglobin 27.8 pg (27.0-33.0); Mean Corpuscular Volume 85.5 fL (80.0-98.0); Mean Platelet Volume 11.6 fL (9.4-12.4); Monocytes Absolute Auto 0.6 X10*3/uL (0.1-1.2); Monocytes Percent Auto 7.6 % (2-11); Neutrophils Absolute Auto 4.1 x10*3/uL (2.0-8.3); Neutrophils Percent Auto 56.5 % (45-73); Platelet Count 204 X10*3/uL (160-400); Red Blood Count 5.72 X10*6/uL (4.60-5.80); Red Cell Distribution Width 13.2 % (11.0-16.0); White Blood Count 7.3 X10*3/uL (4.8-10.8)
[2023-01-22 17:28] LABS: Alanine Aminotransferase 26 U/L (0-40); Albumin Level 4.4 g/dL (3.5-5.0); Alkaline Phosphatase 71 U/L (39-117); Anion Gap 14 (12-20); Aspartate Amino Transferase 20 U/L (5-37); Bilirubin Direct 0.2 mg/dL (0.0-0.5); Bilirubin Total 0.7 mg/dL (0.0-1.0); Blood Urea Nitrogen 11 mg/dL (9-16); Calcium 9.4 mg/dL (8.4-10.2); Carbon Dioxide 28 mmol/L (22-29); Chloride 105 mmol/L (96-108); Estimated Glomerular Filt Rate > 60; Glucose Random 140 mg/dL (60-115); Lipase 27 U/L (8-78); Magnesium 2.3 mg/dL (1.6-2.6); Potassium 3.7 mmol/L (3.3-5.1); Sodium 143 mmol/L (135-145); Total Protein 7.7 g/dL (6.5-8.0)
[2023-01-22 18:03] LABS: Influenza A PCR NEGATIVE (Negative); Influenza B PCR NEGATIVE (Negative); Resp Syncy Virus RNA Qual PCR NEGATIVE (Negative); SARS COV2 PCR INHOUSE NEGATIVE (Negative)
[2023-01-22 19:31] VITALS: BP 121/79; PULSE 87; RESP 16; TEMP 36.6; O2SAT 97
== END 2023-01-22 21:20 | disposition home or self-care (01) ==
PROVIDERS: Physician Assistant; Emergency Provider Emergency Medicine; PCP Internal Medicine
DX: R11.2 Nausea with vomiting, unspecified (principal); R19.7 Diarrhea, unspecified; Z79.899 Other long term (current) drug therapy; Z20.822 Contact with and (suspected) exposure to COVID-19; Z20.828 Contact with and (suspected) exposure to other viral communicable diseases
CPT/HCPCS: 0241U; 80048; 80076; 83690; 83735; 85025; 99282; 99283

== ENCOUNTER 2023-07-23 09:08 | Outpatient (AMB) | payer OTHER, SELFPAY ==
[2023-07-23 09:14] VITALS: BP 120/86; PULSE 108; O2SAT 98; BMI 26.5
--- NOTE | 2023-07-23 09:14 | A.OFFPC_ITS ---
Vital Signs 07/23/23 09:14 Height 5 ft 8 in Weight 174 lb BMI 26.5 BP 120/86 Blood Pressure Location Lt brachial Position Sitting Pulse 108 H Pulse Source Pulse Oximeter Pulse Oximetry (%) 98 Oxygen Delivery Method Room Air Intake Visit Reasons: Office visit Intake Note: Patient here for anxiety, chest discomfort Wire Charger Required: No Accompanied by: Self / Same As Patient Allergies Penicillins [PENICILLINS] Allergy (Intermediate, Verified 07/23/23 09:38) HIVES Medication List - Last Reconciled 07/23/23 by Liberty Gooden MD albuterol sulfate 90 mcg/actuation 2 puffs inhalation Q4-6H PRN fluticasone propionate 50 mcg/actuation (Allergy Relief (fluticasone)) 2 sprays intranasal DAILY 30 days omeprazole 20 mg PO DAILY 90 days Tobacco use date assessed: 07/23/23 Dental Screening Dental Screen Date: 07/23/23 Did you have a dental visit in the last 12 months?: No Did you have a dental problem in the last 6 months where you did not have access to dental care?: No Was dental information given to patient?: Patient has dentist HPI HPI Comments History of Present Illness Details This is a 38-year-old male with mild major depression, generalized anxiety disorder, chronic GERD and chronic allergic rhinitis due to pollen that comes today complaining of some depression after being out of citalopram for over a month. He also has occasional chest pain that happens at rest. Depression with anxiety were stable with citalopram. GERD stable with PPIs. On Flonase as needed for his allergic rhinitis. [facility] Medical History Asthma Physical exam Chronic GERD Hypovitaminosis D Chronic allergic rhinitis due to pollen ROSE (generalized anxiety disorder) Mild major depression, single episode Depression with anxiety Dyslipidemia Surgical History No pertinent past surgical history Family History Mother Diabetes Hypertension Father Diabetes Family/Other Mental health disorder Social History Housing: Apartment Alcohol intake: never Patient Tobacco Use Status: Never used Tobacco e-Cigarette/Vaping Use: Never Used Second Hand Smoke Exposure: No service: No Current occupational status: unemployed Cognitive needs: No Hearing needs: No Vision needs: No Questionnaire PHQ-9 Over the last 2 weeks, how often have you been bothered by any of the following problems? 1. Little interest or pleasure in doing things: several days 2. Feeling down, depressed, or hopeless: several days 3. Trouble falling or staying asleep, or sleeping too much: several days 4. Feeling tired or having little energy: nearly every day 5. Poor appetite or overeating: not at all 6. Feeling bad about yourself - or that you are a failure or have let yourself or your family down: several days 7. Trouble concentrating on things, such as reading the newspaper or watching television: not at all 8. Moving or speaking so slowly that other people could have noticed. Or the opposite - being so fidgety or restless that you have been moving around a lot more than usual: nearly every day 9. Thoughts that you would be better off or of hurting yourself in some way: not at all Total score: 10 Depression Screening Interpretation: Positive Depression Screening Follow-up: Existing condition, New Medication prescribed and Follow-up Visit Requested Depression Screening Done: Yes 02816 - PHQ-9 Billing: Yes Source: Developed by Drs. Tomas Gillis, Jaclyn Ruiz, Jatinder Begum and colleagues, with an educational corby from [employer]. Thrive Questionnaire Date Thrive assessed: 07/23/23 I am a: Patient What is your living situation today?: I have a steady place to live Within the past 12 months, did the food you bought not last and you didn't have the money to get more?: Never true Within the past 12 months, did you worry whether your food would run out before you got money to buy more?: Never true Do you have trouble paying for medicines?: No Do you have trouble getting transportation to medical appointments?: No Do you have trouble paying your heating and electricity bill?: No Do you have trouble taking care of your child, family member or friend?: No Do you have trouble with day-to-day activities such as bathing, preparing meals, shopping, managing finances, etc.?: No Are you currently unemployed and looking for a job?: No Are you interested in more education?: No Please select the resources that you would like help with: None Currently or been in a relationship where the following occur: no concerns reported THRIVE Score: 0 AUDIT C Alcohol Use Questionnaire (AUDIT-C) 1. How often do you have a drink containing alcohol?: Never Total Score: 0 ROSE-7 AMB Questionnaire ROSE-7 Date ROSE - 7 assessed: 07/23/23 Feeling nervous, anxious, or on edge: 3 = Nearly every day Not being able to stop or control worryin = Several days Worrying too much about different things: 2 = More than half the days Trouble relaxin = Several days Being so restless that it is hard to sit still: 3 = Nearly every day Becoming easily annoyed or irritable: 1 = Several days Feeling afraid as if something awful might happen: 2 = More than half the days Total ROSE-7 score (0-4 normal; 5-9 mild; 10-14 moderate; 15-21 severe): 13 Source: Developed by Drs. Tomas Gillis, Jaclyn Ruiz, Jatinder Begum and colleagues, with an educational corby from [employer]. ROSE-7 Assessment Billing ROSE-7 Assessment Tool: ROSE-7 Assessment 17408 Review of Systems Const All systems reviewed & are unremarkable except as noted in HPI and below Eyes Reports no additional complaints, Denies change in vision and Denies other visual disturbances Card Reports chest pain at rest, Denies chest pain with activity, Denies edema, Denies irregular heart rhythm, Denies claudication, Denies dyspnea, Denies dyspnea on exertion, Denies orthopnea, Denies paroxysmal nocturnal dyspnea and Denies slow heart rate Resp Denies cough, Denies dyspnea and Denies dyspnea on exertion Physical exam (Primary Care) Vital Signs: Last Vital Signs Pulse 108 H 07/23/23 09:14 BP 120/86 07/23/23 09:14 Pulse Ox 98 07/23/23 09:14 Oxygen Delivery Method Room Air 07/23/23 09:14 BMI result Body Mass Index 26.5 Tobacco/Smoking Status: Tobacco use Status Tobacco use date assessed 07/23/23 07/23/23 09:21 Patient Tobacco Use Status Never used Tobacco 07/23/23 09:21 e-Cigarette/Vaping Use Never Used 07/23/23 09:21 PHQ-9: PHQ-9 Score PHQ-9: Total score 10 07/23/23 09:40 Depression Screening Interpretation: Positive Depression Screening Follow-up: Existing condition, New Medication prescribed and Follow-up Visit Requested Thrive Assessment: Date of Thrive Assessment Date Thrive assessed 07/23/23 07/23/23 09:21 Currently or been in a relationship where the following occur: no concerns reported Resp Effort & Inspection: normal respiratory effort Auscultation: clear to auscultation bilaterally Cardio Jugular venous distension: no JVD Rate: regular rate Rhythm: regular rhythm Heart sounds: S1 normal heart sound present and S2 normal heart sound present Extrem General: Yes full ROM Psych Appearance: grossly normal Assessment and Plan Assessment & Plan (1) Mild major depression, single episode: Code(s): F32.0 - Major depressive disorder, single episode, mild Plan: Restart citalopram. (2) ROSE (generalized anxiety disorder): Code(s): F41.1 - Generalized anxiety disorder Plan: Restart citalopram. (3) Chronic GERD: Code(s): K21.9 - Gastro-esophageal reflux disease without esophagitis Plan: Continue PPIs. (4) Chronic allergic rhinitis due to pollen: Code(s): J30.1 - Allergic rhinitis due to pollen Plan: Continue Flonase as needed. Orders: Orders ECG 12 lead EKG Today R07.9 - Chest pain, unspecified Complete Blood Count Auto Diff 4 Months K21.9 - Gastro-esophageal reflux disease without esophagitis Comprehensive Revloc. Panel Fast 4 Months K21.9 - Gastro-esophageal reflux disease without esophagitis Vitamin D 25-OH Total 4 Months E55.9 - Vitamin D deficiency, unspecified Lipid Panel 4 Months E78.5 - Hyperlipidemia, unspecified Medications: New citalopram 10 mg PO DAILY 90 tabs 1RF 90 days F32.0 - Major depressive disorder, single episode, mild Refilled omeprazole 20 mg PO DAILY 90 caps 1RF 90 days K21.9 - Gastro-esophageal reflux disease without esophagitis Coding Level of Care Code Est Pt Level 4 (64408) Complex EM visit Add On G2211 Diagnoses Mild major depression, single episode F32.0 ROSE (generalized anxiety disorder) F41.1 Chronic GERD K21.9 Chronic allergic rhinitis due to pollen J30.1 Additional Codes ROSE-7 Assessment Billing - ROSE-7 Assessment Tool: ROSE-7 Assessment 37941 ([id number]) Time Spent (min) 21
== END 2023-07-23 09:49 | disposition home or self-care (01) ==
PROVIDERS: PCP Internal Medicine; Visit Provider Internal Medicine
DX: F32.0 Major depressive disorder, single episode, mild (principal); F41.1 Generalized anxiety disorder; K21.9 Gastro-esophageal reflux disease without esophagitis; J30.1 Allergic rhinitis due to pollen
CPT/HCPCS: 96127; 99214; G2211

== ENCOUNTER → 2023-07-24 08:52 | Outpatient (REF) | payer OTHER, SELFPAY ==
--- NOTE | 2023-07-24 09:02 | ECG_ITS ---
Test Reason : chest pain Blood Pressure : / mmHG Vent. Rate : 101 BPM Atrial Rate : 101 BPM P-R Int : 128 ms QRS Dur : 090 ms QT Int : 328 ms P-R-T Axes : 070 063 -58 degrees QTc Int : 425 ms Sinus tachycardia Minimal voltage criteria for LVH, may be normal variant ( Sokolow[place] ) ST & T wave abnormality, consider inferior ischemia Abnormal ECG When compared with ECG of 17-JAN-2016 23:55, Non-specific change in ST segment in Inferior leads Non-specific change in ST segment in Lateral leads T wave inversion now evident in Inferior leads Nonspecific T wave abnormality now evident in Lateral leads Referred By: Liberty Gooden Electronically Signed By:MARK MARIE
== END ==
LOC: HO.CARD 08:52
PROVIDERS: PCP Internal Medicine; Visit Provider Internal Medicine
DX: R07.9 Chest pain, unspecified (principal)
CPT/HCPCS: 93005

== ENCOUNTER → 2023-07-24 09:02 | Outpatient (BNV) | payer OTHER, SELFPAY | PROVIDERS: PCP Internal Medicine; Visit Provider Internal Medicine | DX: R94.31 Abnormal electrocardiogram [ECG] [EKG] (principal) | CPT/HCPCS: 93010 ==

== ENCOUNTER 2023-07-29 17:04 | Emergency (ER) | payer OTHER, SELFPAY ==
--- NOTE | ~2023-07-29 | XR_ITS ---
EXAMINATION: XR CHEST CLINICAL INFORMATION: Pain COMPARISON: Previous chest x-ray most recent February 2019 TECHNIQUE: 2 views of the chest were obtained. FINDINGS: No significant abnormality is noted involving the heart, lungs, mediastinum, bony thorax or soft tissues. XR/XR chest 2V IMPRESSION: Unremarkable examination.
--- NOTE | 2023-07-29 17:06 | ECG_ITS ---
Test Reason : CHEST PAIN Blood Pressure : / mmHG Vent. Rate : 112 BPM Atrial Rate : 112 BPM P-R Int : 098 ms QRS Dur : 092 ms QT Int : 316 ms P-R-T Axes : 000 143 -42 degrees QTc Int : 431 ms Limbs lead reversal Sinus tachycardia with short IN Right axis deviation Minimal voltage criteria for LVH, may be normal variant ( Sokolow-[place] ) Abnormal QRS-T angle, consider primary T wave abnormality Abnormal ECG When compared with ECG of 24-JUL-2023 09:04, IN interval has decreased T wave inversion less evident in Inferior leads Referred By: Generic ED Physician Electronically Signed By:Nikita Li
[2023-07-29 17:17] VITALS: BP 144/87; PULSE 114; RESP 18; TEMP 36.3; O2SAT 97; BMI 26.5
--- NOTE | 2023-07-29 17:18 | ED_ITS ---
HPI - Chest Pain General Chief Complaint: Chest Pain Stated Complaint: chest pain ,high blood pressure Time Seen by Provider: 07/29/23 20:03 Source: patient, RN notes reviewed and old records reviewed Mode of arrival: ambulatory Limitations: no limitations History of Present Illness ED Provider: Harshil BENEDICT narrative: 38-year-old male past medical history significant for mitral valve prolapse, anxiety, hyperlipidemia presents for evaluation of left-sided chest pain. Patient reports he has had chest pain on and off for the last 2 weeks. His pain is worse with movement or lifting anything heavy. He reports associated palpitations but denies shortness of breath. He states that he has not seen cardiology in several years but is diagnosed with mitral valve prolapse. He called his PCP and has an appointment for November Denies any leg swelling, recent travel Currently his pain is 2/10 Related Data Previous Rx's ?Medication ?Instructions ?Recorded albuterol sulfate 90 mcg/actuation 2 puff inhalation Q4-6H PRN 05/21/21 aerosol inhaler shortness of breath or wheezing #8.5 grams fluticasone propionate 50 2 spray intranasal DAILY 30 days 07/18/21 mcg/actuation nasal #16 grams spray,suspension (Allergy Relief (fluticasone)) citalopram 10 mg tablet 10 mg PO DAILY 90 days #90 tabs 07/23/23 omeprazole 20 mg capsule,delayed 20 mg PO DAILY 90 days #90 caps 07/23/23 release Allergies Allergy/AdvReac Type Severity Reaction Status Date / Time Penicillins [PENICILLINS] Allergy Intermediate HIVES Verified 07/29/23 17:19 Review of Systems 2 Constitutional: Constitutional: Denies body ache(s), Denies chills, Denies fever(s) and Denies frequent falls Cardiovascular: Cardiovascular: Reports chest pain, Reports palpitations and Denies dyspnea Respiratory: Respiratory: Denies cough and Denies dyspnea Gastrointestinal: Gastrointestinal: Denies abdominal pain, Denies nausea and Denies vomiting Musculoskeletal: Musculoskeletal: Denies back pain Integumentary/Breasts: Skin/Breast: Denies rash Neurologic: Denies frequent falls Psychiatric: Psychiatric: Denies suicidal ideation Endocrine: Endocrine: Reports palpitations PMFSH Past Medical History Medical History Asthma Physical exam Chronic GERD Hypovitaminosis D Chronic allergic rhinitis due to pollen ROSE (generalized anxiety disorder) Mild major depression, single episode Depression with anxiety Dyslipidemia Surgical History No pertinent past surgical history Family History Family History Mother Diabetes Hypertension Father Diabetes Family/Other Mental health disorder Social History Social History Housing: Apartment Alcohol intake: never Patient Tobacco Use Status: Never used Tobacco Smoked in Last 30 Days: No e-Cigarette/Vaping Use: Never Used Second Hand Smoke Exposure: No Use of substances other than those prescribed or required for medical reasons: No Advance Directives: No Advance Directives Information Provided: No service: No Current occupational status: unemployed Cognitive needs: No Hearing needs: No Vision needs: No Physical Exam 2 Vital Signs: Vital Signs: Last Vital Signs Temp 98.5 F 07/29/23 22:07 Pulse 95 07/29/23 22:07 Resp 22 H 07/29/23 22:07 BP 122/86 07/29/23 22:07 Pulse Ox 99 07/29/23 22:07 O2 Del Method Room Air 07/29/23 22:07 BMI result Body Mass Index 26.5 Const: General: healthy appearing, comfortable, no acute distress, alert and awake Nutritional Appearance: well nourished Orientation/consciousness: p atient oriented x3 HEENT: Head: Yes normocephalic and Yes atraumatic Eyes: Eyelids: Yes eyelids normal Conjunctivae: conjunctivae normal S clerae: sclerae normal Corneas: corneas normal Pupils: Equal, round and reactive pupils present EOM: EOMs intact bilaterally Neck: Neck: Yes full ROM Chest: Chest palpation & inspection: no crepitus Resp: Effort & Inspection: normal respiratory effort, able to speak in complete sentences, no audible wheezes and not labored Auscultation: clear to auscultation bilaterally Cardio: Rate: regular rate Rhythm: regular rhythm Heart sounds: no gallops, no murmurs and no rubs GI: Inspection: No distended Palpation (GI): Soft to palpation, not firm, nontender, no guarding and not rigid Skin: General skin exam: elasticity normal Neuro: General: patient oriented x3 Cranial nerves: Yes Equal, round and reactive pupils present and Yes Bilaterally intact EOM present Cognition (Neuro): normal cognition Course Course Course Narrative: This is a rapid medical exam completed by Abdoulaye SALEEM: Additional HPI, ROS, PE not included below will be deferred to primary provider. c/o intermittend chest pain for the past two weeks, worse today Reevaluation(s) Reevaluation #1: D-dimer negative, chest x-ray without acute infiltrate, patient will be discharged to follow-up with his PCP and he will be referred back to cardiology Time: 22:12 Medical Decision Making Medical Decision Making MDM Narrative: 38-year-old male with past medical history as documented above presents for evaluation left-sided chest pain. His pain is present for about 2 weeks. His EKG shows a sinus tachycardia at 112 beats per minute with right axis deviation. No significant change when compared to previous from 07/24/2023. The patient's labs show no significant abnormalities. Glucose is elevated to 139 but no evidence of DKA. Patient's troponins undetectable, electrolytes within normal limits. Given the chest pain with tachycardia a D-dimer was ordered to rule out PE. A chest x-ray was also ordered to evaluate for the cause of chest pain. He rules out for ACS Differential Diagnosis Differential Diagnoses: The differential diagnosis associated with the presentation includes Chest pain Costochondritis Chest wall pain Anxiety PE ACS Admission/Observation Consideration of admission/observation: Escalation of care including admission/observation considered Patient ruled out for ACS and does not require admission at this time Lab Data [facility] Lab Attestation statement: I reviewed the patient's lab results. Please see medical decision making above 07/29/23 17:46 07/29/23 17:46 Labs: Lab Results 07/29/23 07/29/23 Range/Units 17:46 21:07 WBC 7.2 (4.8-10.8) X10*3/uL RBC 5.65 (4.60-5.80) X10*6/uL Hgb 16.4 (14.0-18.0) g/dl Hct 48.5 (42.0-52.0) % MCV 85.8 (80.0-98.0) fL MCH 29.0 (27.0-33.0) pg MCHC 33.8 (31.0-36.0) g/dl RDW 13.2 (11.0-16.0) % Plt Count 216 (160-400) X10*3/uL MPV 11.4 (9.4-12.4) fL Immature Gran % (Auto) 0.3 (0.0-0.4) % Neut % (Auto) 76.3 H (45-73) % Lymph % (Auto) 17.7 L (20-40) % [place] % (Auto) 4.8 (2-11) % Eos % (Auto) 0.3 (0-4) % Baso % (Auto) 0.6 (0-2) % Lymph # (Auto) 1.3 (1.2-4.9) X10*3/uL [place] # (Auto) 0.4 (0.1-1.2) X10*3/uL Eos # (Auto) 0.0 (0.0-0.4) X10*3/uL Baso # (Auto) 0.0 (0.0-0.2) X10*3/uL Abs Immat Gran (auto) 0.02 (0.00-0.03) X10*3/uL Absolute Neuts (auto) 5.5 (2.0-8.3) x10*3/uL Absolute Nucleated RBC 0.000 (0.0-0.012) X10*3/uL Nucleated RBC % (auto) 0.0 (0.0-0.2) /100WBC D-Dimer High Sensitivty < 150 NG/ML Sodium 139 (135-145) mmol/L Potassium 4.1 (3.3-5.1) mmol/L Chloride 104 (96-108) mmol/L Carbon Dioxide 29 (22-29) mmol/L Anion Gap 10 L (12-20) BUN 12 (9-16) mg/dL Creatinine 1.07 (0.5-1.4) mg/dL Estim Creat Clear Calc 89.6 Estimated GFR > 60 Random Glucose 139 H (60-115) mg/dL Calcium 10.0 D (8.4-10.2) mg/dL Total Bilirubin 0.6 (0.0-1.0) mg/dL AST 18 (5-37) U/L ALT 31 (0-40) U/L Alkaline Phosphatase 56 (39-117) U/L Troponin I High Sens < 2.7 (<3.5-35.0) ng/L Total Protein 7.8 (6.5-8.0) g/dL Albumin 4.5 (3.5-5.0) g/dL Independent Interpretation I performed an independent interpretation of an: EKG (Please see medical decision making about) Discharge Plan Discharge Clinical Impression: Chest pain Patient Disposition: Home, Self-Care Instructions: Chest Pain (ED) Additional Instructions: Your workup in the ER today was reassuring. This includes your blood work, EKG and chest x-ray. Follow-up with your primary doctor as well as Cardiology at the number provided Return for new or worsening symptoms Prescriptions: No Action albuterol sulfate 90 mcg/actuation HFA aerosol inhaler 2 puff inhalation Q4-6H PRN (Reason: shortness of breath or wheezing) Qty: 8.5 0RF fluticasone propionate [Allergy Relief (fluticasone)] 50 mcg/actuation spray,suspension 2 spray intranasal DAILY 30 Days Qty: 16 1RF Rx Instructions: administer into each nostril omeprazole 20 mg capsule,delayed release(DR/EC) 20 mg PO DAILY 90 Days Qty: 90 1RF citalopram 10 mg tablet 10 mg PO DAILY 90 Days Qty: 90 1RF Referrals: Nikita Li MD [Physician] - (chest pain, history of mitral valve prolapse) Print Language: Azeri
[2023-07-29 17:49] LABS: MANUAL DIFF FLAG NO
[2023-07-29 17:53] LABS: Basophils Percent Auto 0.6 % (0-2); Eosinophils Percent Auto 0.3 % (0-4); Hematocrit 48.5 % (42.0-52.0); Hemoglobin 16.4 g/dl (14.0-18.0); Imm Gran Abs Auto 0.02 X10*3/uL (0.00-0.03); Imm Gran Pct Auto 0.3 % (0.0-0.4); Lymphocytes Absolute Auto 1.3 X10*3/uL (1.2-4.9); Lymphocytes Percent Auto 17.7 % (20-40); Mean Corpuscular HGB Conc 33.8 g/dl (31.0-36.0); Mean Corpuscular Volume 85.8 fL (80.0-98.0); Mean Platelet Volume 11.4 fL (9.4-12.4); Monocytes Absolute Auto 0.4 X10*3/uL (0.1-1.2); Monocytes Percent Auto 4.8 % (2-11); Neutrophils Absolute Auto 5.5 x10*3/uL (2.0-8.3); Neutrophils Percent Auto 76.3 % (45-73); Platelet Count 216 X10*3/uL (160-400); Red Blood Count 5.65 X10*6/uL (4.60-5.80); Red Cell Distribution Width 13.2 % (11.0-16.0); White Blood Count 7.2 X10*3/uL (4.8-10.8)
[2023-07-29 18:08] LABS: Alanine Aminotransferase 31 U/L (0-40); Albumin Level 4.5 g/dL (3.5-5.0); Alkaline Phosphatase 56 U/L (39-117); Anion Gap 10 (12-20); Aspartate Amino Transferase 18 U/L (5-37); Bilirubin Total 0.6 mg/dL (0.0-1.0); Blood Urea Nitrogen 12 mg/dL (9-16); Carbon Dioxide 29 mmol/L (22-29); Chloride 104 mmol/L (96-108); Creatinine Clr Calc Pharmacy 89.6; Estimated Glomerular Filt Rate > 60; Glucose Random 139 mg/dL (60-115); Potassium 4.1 mmol/L (3.3-5.1); Sodium 139 mmol/L (135-145); Total Protein 7.8 g/dL (6.5-8.0)
[2023-07-29 18:18] LABS: Troponin-I High Sensitivity < 2.7 ng/L (<3.5-35.0)
[2023-07-29 20:04] VITALS: BP 133/84; PULSE 82; RESP 15; TEMP 36.8; O2SAT 97
[2023-07-29 22:02] LABS: D Dimer High Sensitivity < 150 NG/ML
[2023-07-29 22:07] VITALS: BP 122/86; PULSE 95; RESP 22; TEMP 36.9; O2SAT 99
[2023-07-29 22:24] VITALS: BP 122/86; PULSE 95; RESP 22; TEMP 36.9; O2SAT 99
== END 2023-07-29 22:24 | disposition home or self-care (01) ==
PROVIDERS: Physician Assistant; Emergency Provider Student in an Organized Health Care Education/Training Program; PCP Internal Medicine
DX: R07.89 Other chest pain (principal); R00.0 Tachycardia, unspecified; Z79.899 Other long term (current) drug therapy
CPT/HCPCS: 36415; 71046; 80053; 84484; 85025; 85379; 93005; 99283; 99285

== ENCOUNTER → 2023-07-29 17:06 | Outpatient (BNV) | payer OTHER, SELFPAY | PROVIDERS: Emergency Provider Student in an Organized Health Care Education/Training Program; PCP Internal Medicine; Visit Provider Internal Medicine Cardiovascular Disease | DX: R94.31 Abnormal electrocardiogram [ECG] [EKG] (principal) | CPT/HCPCS: 93010 ==

== ENCOUNTER 2023-08-14 10:52 | Emergency (ER) | payer OTHER, SELFPAY ==
[2023-08-14 10:59] VITALS: BP 128/75; PULSE 87; RESP 16; TEMP 36.4; O2SAT 97; BMI 26.2
--- NOTE | 2023-08-14 11:05 | ECG_ITS ---
Test Reason : DIZZY Blood Pressure : / mmHG Vent. Rate : 087 BPM Atrial Rate : 087 BPM P-R Int : 134 ms QRS Dur : 094 ms QT Int : 338 ms P-R-T Axes : 067 052 012 degrees QTc Int : 406 ms Normal sinus rhythm Possible Left atrial enlargement Septal infarct , age undetermined Abnormal ECG When compared with ECG of 29-JUL-2023 17:05, QRS axis Shifted left Septal infarct is now Present Referred By: Generic ED Physician Electronically Signed By:MARK MARIE
[2023-08-14 11:35] LABS: MANUAL DIFF FLAG NO
[2023-08-14 11:37] LABS: Basophils Absolute Auto 0.1 X10*3/uL (0.0-0.2); Basophils Percent Auto 0.9 % (0-2); Eosinophils Absolute Auto 0.1 X10*3/uL (0.0-0.4); Eosinophils Percent Auto 1.2 % (0-4); Hematocrit 46.3 % (42.0-52.0); Hemoglobin 15.4 g/dl (14.0-18.0); Lymphocytes Absolute Auto 2.7 X10*3/uL (1.2-4.9); Lymphocytes Percent Auto 40.9 % (20-40); Mean Corpuscular HGB Conc 33.3 g/dl (31.0-36.0); Mean Corpuscular Volume 87.2 fL (80.0-98.0); Mean Platelet Volume 11.2 fL (9.4-12.4); Monocytes Absolute Auto 0.4 X10*3/uL (0.1-1.2); Monocytes Percent Auto 6.6 % (2-11); Neutrophils Absolute Auto 3.3 x10*3/uL (2.0-8.3); Neutrophils Percent Auto 50.4 % (45-73); Platelet Count 185 X10*3/uL (160-400); Red Blood Count 5.31 X10*6/uL (4.60-5.80); Red Cell Distribution Width 13.2 % (11.0-16.0); White Blood Count 6.6 X10*3/uL (4.8-10.8)
[2023-08-14 11:53] LABS: Alanine Aminotransferase 33 U/L (0-40); Albumin Level 4.2 g/dL (3.5-5.0); Alkaline Phosphatase 57 U/L (39-117); Anion Gap 10 (12-20); Aspartate Amino Transferase 19 U/L (5-37); Bilirubin Total 0.4 mg/dL (0.0-1.0); Blood Urea Nitrogen 10 mg/dL (9-16); Calcium 9.4 mg/dL (8.4-10.2); Carbon Dioxide 30 mmol/L (22-29); Chloride 105 mmol/L (96-108); Creatinine Clr Calc Pharmacy 93.1; Estimated Glomerular Filt Rate > 60; Glucose Random 118 mg/dL (60-115); Potassium 3.6 mmol/L (3.3-5.1); Sodium 141 mmol/L (135-145); Total Protein 7.1 g/dL (6.5-8.0)
[2023-08-14 12:00] LABS: Troponin-I High Sensitivity < 2.7 ng/L (<3.5-35.0)
--- NOTE | 2023-08-14 13:49 | ED_ITS ---
HPI - General Adult General Chief complaint: Dizziness Stated complaint: headache, dizzy Time Seen by Provider: 08/14/23 13:48 Source: patient Mode of arrival: ambulatory Limitations: no limitations History of Present Illness HPI narrative: 38-year-old male denies any significant medical history is documented history is GERD, depression, generalized anxiety disorder, dyslipidemia, is presenting to the ED for vertiginous symptoms started yesterday morning. Does not recall any history of dizziness or vertigo in the past. No head strike or LOC. He reports positional vertigo worse when sitting upright quickly. No tinnitus, no hearing loss no other ENT symptoms no recent illness. He reports a headache moderate yesterday morning. No thunderclap. Related Data Previous Rx's ?Medication ?Instructions ?Recorded albuterol sulfate 90 mcg/actuation 2 puff inhalation Q4-6H PRN 05/21/21 aerosol inhaler shortness of breath or wheezing #8.5 grams fluticasone propionate 50 2 spray intranasal DAILY 30 days 07/18/21 mcg/actuation nasal #16 grams spray,suspension (Allergy Relief (fluticasone)) citalopram 10 mg tablet 10 mg PO DAILY 90 days #90 tabs 07/23/23 omeprazole 20 mg capsule,delayed 20 mg PO DAILY 90 days #90 caps 07/23/23 release meclizine 25 mg tablet 25 mg PO DAILY PRN dizziness #10 08/14/23 tabs Allergies Allergy/AdvReac Type Severity Reaction Status Date / Time Penicillins [PENICILLINS] Allergy Intermediate HIVES Verified 08/14/23 11:04 PMFSH Past Medical History Medical History Asthma Physical exam Chronic GERD Hypovitaminosis D Chronic allergic rhinitis due to pollen ROSE (generalized anxiety disorder) Mild major depression, single episode Depression with anxiety Dyslipidemia Surgical History No pertinent past surgical history Family History Family History Mother Diabetes Hypertension Father Diabetes Family/Other Mental health disorder Social History Social History Housing: Apartment Alcohol intake: never Patient Tobacco Use Status: Never used Tobacco e-Cigarette/Vaping Use: Never Used Second Hand Smoke Exposure: No Advance Directives: No service: No Current occupational status: unemployed Cognitive needs: No Hearing needs: No Vision needs: No Physical Exam ED Vital Signs: Vital Signs - 24 hr 08/14/23 10:59 08/14/23 14:14 Temperature 97.6 F 98.0 F Pulse Rate 87 81 Respiratory Rate 16 18 Blood Pressure 128/75 128/72 Pulse Oximetry 97 97 Oxygen Delivery Method Room Air Room Air BMI result Body Mass Index 26.2 Const General: cooperative, healthy appearing and no acute distress Orientation/consciousness: oriented to person, oriented to place and oriented to time HENMT Head: Yes normal to inspection Ears: hearing grossly normal bilaterally, external ears normal, TM's normal bilaterally and EAC's normal Eyes Other: Anicteric Pupils: Equal, round and reactive pupils present Chest Chest palpation & inspection: normal inspection of the chest Resp Effort & Inspection: normal respiratory effort and able to speak in complete sentences Auscultation: clear to auscultation bilaterally Cardio Rate: regular rate Rhythm: regular rhythm GI Inspection: Yes normal to inspection Palpation (GI): nontender Auscultation: normal bowel sounds Neuro General: oriented to person, oriented to place, oriented to time and gait normal Cranial nerves: Yes CN's II-XII intact bilaterally, Yes Facial sensation intact/muscles of mastication intact, Yes Equal, round and reactive pupils present and Yes Bilaterally intact EOM present Gait exam (Neuro): Normal gait present Motor exam (neuro): 5/5 motor strength present throughout and Pronator motor function not present Coordination: [id number] test normal and Normal rapid alternating movements of the distal upper extremity present (Neuro) Medications Administered Discontinued Medications Generic Name Dose Route Start Last Admin Trade Name Freq PRN Reason Stop Dose Admin Meclizine HCl 25 mg 08/14/23 14:04 08/14/23 15:10 Meclizine Hcl 25 Mg Tablet PO 08/14/23 14:05 25 mg ONCE ONE Administration Medical Decision Making Medical Decision Making [facility] Narrative: [age] male with resolved headache vertiginous symptoms mostly positional. ENT exam reassuring. No recent illness. Vital signs stable he reports a low blood pressure taken on a BP cuff at home. Particularly neurologic exam is within normal limits including gait and cerebellar testing. Symptomatology most suggestive of peripheral vertigo we did consider central vertigo but this is unlikely given his age and symptoms. I have advised him to take a blood pressure diary at home use ibuprofen or Tylenol for headache and use p.r.n. meclizine as well as cause PCP for possible referral for vestibular physical therapy. Lab Data 08/14/23 11:28 08/14/23 11:28 Labs: Lab Results 08/14/23 Range/Units 11:28 WBC 6.6 (4.8-10.8) X10*3/uL RBC 5.31 (4.60-5.80) X10*6/uL Hgb 15.4 (14.0-18.0) g/dl Hct 46.3 (42.0-52.0) % MCV 87.2 (80.0-98.0) fL MCH 29.0 (27.0-33.0) pg MCHC 33.3 (31.0-36.0) g/dl RDW 13.2 (11.0-16.0) % Plt Count 185 (160-400) X10*3/uL MPV 11.2 (9.4-12.4) fL Immature Gran % (Auto) 0.0 (0.0-0.4) % Neut % (Auto) 50.4 (45-73) % Lymph % (Auto) 40.9 H (20-40) % [place] % (Auto) 6.6 (2-11) % Eos % (Auto) 1.2 (0-4) % Baso % (Auto) 0.9 (0-2) % Lymph # (Auto) 2.7 (1.2-4.9) X10*3/uL [place] # (Auto) 0.4 (0.1-1.2) X10*3/uL Eos # (Auto) 0.1 (0.0-0.4) X10*3/uL Baso # (Auto) 0.1 (0.0-0.2) X10*3/uL Abs Immat Gran (auto) 0.00 (0.00-0.03) X10*3/uL Absolute Neuts (auto) 3.3 (2.0-8.3) x10*3/uL Absolute Nucleated RBC 0.000 (0.0-0.012) X10*3/uL Nucleated RBC % (auto) 0.0 (0.0-0.2) /100WBC Sodium 141 (135-145) mmol/L Potassium 3.6 (3.3-5.1) mmol/L Chloride 105 (96-108) mmol/L Carbon Dioxide 30 H (22-29) mmol/L Anion Gap 10 L (12-20) BUN 10 (9-16) mg/dL Creatinine 1.03 (0.5-1.4) mg/dL Estim Creat Clear Calc 93.1 Estimated GFR > 60 Random Glucose 118 H (60-115) mg/dL Calcium 9.4 (8.4-10.2) mg/dL Total Bilirubin 0.4 (0.0-1.0) mg/dL AST 19 (5-37) U/L ALT 33 (0-40) U/L Alkaline Phosphatase 57 (39-117) U/L Troponin I High Sens < 2.7 (<3.5-35.0) ng/L Total Protein 7.1 (6.5-8.0) g/dL Albumin 4.2 (3.5-5.0) g/dL Independent Interpretation I performed an independent interpretation of an: EKG Interpretation: Sinus rhythm rate 87 QTC 4 6. No ischemic changes. Prescription Management I considered prescription management with: Other (Antihistamine) Discharge Plan Discharge Clinical Impression: Benign paroxysmal positional vertigo Patient Disposition: Home, Self-Care Instructions: Vertigo (ED), Benign Paroxysmal Positional Vertigo (ED) Additional Instructions: As we discussed I think you should call your primary doctor to discuss your headache and occasional vertigo symptoms. You had a normal reassuring neurologic exam and reassuring vital signs. We prefer prescribed an as-needed medication if you develop vertigo symptoms he can take 1 of these tablets drink plenty of water and lay down in a dark room for 30 minutes see how you feel. Your primary doctor may refer you to an outpatient vestibular therapy. Discussed your headache with them as well which he did not have while here in the emergency department. Prescriptions: New meclizine 25 mg tablet 25 mg PO DAILY PRN (Reason: dizziness) Qty: 10 0RF No Action albuterol sulfate 90 mcg/actuation HFA aerosol inhaler 2 puff inhalation Q4-6H PRN (Reason: shortness of breath or wheezing) Qty: 8.5 0RF fluticasone propionate [Allergy Relief (fluticasone)] 50 mcg/actuation spray,suspension 2 spray intranasal DAILY 30 Days Qty: 16 1RF Rx Instructions: administer into each nostril omeprazole 20 mg capsule,delayed release(DR/EC) 20 mg PO DAILY 90 Days Qty: 90 1RF citalopram 10 mg tablet 10 mg PO DAILY 90 Days Qty: 90 1RF Interventions: ED Discharge Assessment Last Done: 08/14/23 15:14 Discharge Date/Time: 08/14/23 15:16 Print Language: Jordanian
[2023-08-14 14:14] VITALS: BP 128/72; PULSE 81; RESP 18; TEMP 36.7; O2SAT 97
[2023-08-14] MEDS: Meclizine HCl 25 MG TABLET PO (15:10)
[2023-08-14 15:14] VITALS: BP 119/82; PULSE 80; RESP 18; TEMP 36.6; O2SAT 98
== END 2023-08-14 15:16 | disposition home or self-care (01) ==
PROVIDERS: Emergency Provider Emergency Medicine; PCP Internal Medicine
DX: H81.10 Benign paroxysmal vertigo, unspecified ear (principal); E78.5 Hyperlipidemia, unspecified; K21.9 Gastro-esophageal reflux disease without esophagitis
CPT/HCPCS: 36415; 80053; 84484; 85025; 93005; 99283; 99285

== ENCOUNTER → 2023-08-14 11:05 | Outpatient (BNV) | payer OTHER, SELFPAY | PROVIDERS: Emergency Provider Emergency Medicine; PCP Internal Medicine; Visit Provider Internal Medicine | DX: R94.31 Abnormal electrocardiogram [ECG] [EKG] (principal) | CPT/HCPCS: 93010 ==

== ENCOUNTER 2023-09-04 14:51 | Outpatient (AMB) | payer OTHER, SELFPAY ==
[2023-09-04 15:23] VITALS: BP 126/78; PULSE 118; BMI 26.1
--- NOTE | 2023-09-04 15:23 | A.OFFVIS_ITS ---
Vital Signs 09/04/23 15:23 09/04/23 15:49 Height 5 ft 8 in Weight 171 lb 15.369 oz BMI 26.1 BP 126/78 Blood Pressure Location Lt brachial Position Sitting Pulse 118 H 104 H Pulse Source Pulse Oximeter Auscultation Intake Visit Reasons: [employer]/[place]/Abnormal ECG/EKG Allergies Penicillins [PENICILLINS] Allergy (Intermediate, Verified 08/14/23 11:04) HIVES HPI Comments Details: 38-year-old male presents today for a new patient visit. He was seen by this office some time ago regarding chest pains. He has been having chest pains again since March and had an abnormal EKG at primary care. He states they occur randomly and has woken him up at night. It is mostly left chest to his neck. He reports he only has a cardiac history of MVP. He does not drink caffeine, use illicit drugs, or smoke. He eats low salt and sugar. He states his heart rate is often high. He has a history of anxiety. depression. GERD, and dyslipidemia. He reports he is very anxious as his family has heart issues. [facility] Medical History (Updated 09/06/23 @ 13:07 by Yesenia Pollard NP) Tachycardia Asthma Physical exam Chronic GERD Hypovitaminosis D Chronic allergic rhinitis due to pollen ROSE (generalized anxiety disorder) Mild major depression, single episode Depression with anxiety Dyslipidemia Surgical History No pertinent past surgical history Family History (Updated 09/04/23 @ 15:42 by Yesenia Pollard NP) Mother Diabetes Hypertension Myocardial infarction Father Diabetes Family/Other Mental health disorder Social History Housing: Apartment Alcohol intake: never Patient Tobacco Use Status: Never used Tobacco e-Cigarette/Vaping Use: Never Used Second Hand Smoke Exposure: No service: No Current occupational status: unemployed Cognitive needs: No Hearing needs: No Vision needs: No Review of Systems Const Denies weakness ENT Denies dizziness Card Denies chest pain, Denies chest pain with activity, Denies syncope, Denies rapid heart rate, Denies pedal edema, Denies edema, Denies leg edema, Denies lightheadedness, Denies palpitations, Denies dyspnea, Denies dyspnea on exertion and Denies orthopnea Resp Denies cough, Denies dyspnea and Denies dyspnea on exertion GI Denies hematochezia and Denies change in stool character Musc Denies abnormal gait, Denies muscle cramps, Denies muscle weakness, Denies numbness, Denies radiating pain into limb and Denies tingling Neuro Denies abnormal gait, Denies dizziness, Denies syncope, Denies numbness, Denies tingling and Denies weakness Endo Denies palpitations Physical Exam Vital Signs: Last Vital Signs Pulse 104 H 09/04/23 15:49 BP 126/78 09/04/23 15:23 BMI result Body Mass Index 26.1 Const General: healthy appearing and no acute distress Orientation/consciousness: patient oriented x3 HEENT Head: Yes normal to inspection Eyes General: appearance normal, both eyes and all related structures Neck Neck: Yes normal visual inspection Chest Chest palpation & inspection: normal inspection of the chest Resp Effort & Inspection: normal respiratory effort Auscultation: clear to auscultation bilaterally Cardio Other: Tachycardia settled as visit went on Jugular venous distension: no JVD Palpation: normal PMI Rate: tachycardic Rhythm: regular rhythm Heart sounds: S1 normal heart sound present, S2 normal heart sound present, no click, no gallops, no murmurs and no rubs GI Inspection: Yes normal to inspection Palpation (GI): Soft to palpation Skin General skin exam: no rashes or lesions noted Neuro General: patient oriented x3 Extrem General: Yes normal to inspection Psych Appearance: grossly normal Assessment & Plan Assessment & Plan (1) Chest pain: Code(s): R07.9 - Chest pain, unspecified Category: Medical (2) Tachycardia: Code(s): R00.0 - Tachycardia, unspecified Category: Medical (3) Abnormal EKG: Code(s): R94.31 - Abnormal electrocardiogram [ECG] [EKG] Category: Medical Plan Had nuclear imaging in 2017 which showed normal myocardial perfusion. Will recheck stress test to assess ischemia. His EKG on 08.14.23 NSR possible left atrial enlargement. Septal Infact, age undertermined. Will obain holter to assess for tachycardia and another arrhythmias. Will get echocardiogram to assess for structural changes. Tachycardia settled as visit went on. Patient does appear anxious today during visit. Will try to get records from old system to review. Orders: Orders CA echo transthoracic complete 09/04/23 R07.9 - Chest pain, unspecified ECG holter monitor 48 hour 09/04/23 R00.0 - Tachycardia, unspecified CA lexiscan stress w cece 09/05/23 R07.9 - Chest pain, unspecified, R94.31 - Abnormal electrocardiogram [ECG] [EKG] NM cardiolite stress test 09/05/23 R00.0 - Tachycardia, unspecified, R07.9 - Chest pain, unspecified, R94.31 - Abnormal electrocardiogram [ECG] [EKG] Coding Level of Care Code New Pt Level 4 (57578) Diagnoses Chest pain R07.9 Tachycardia R00.0 Abnormal EKG R94.31
[2023-09-04 15:49] VITALS: PULSE 104
== END 2023-09-04 15:59 | disposition home or self-care (01) ==
PROVIDERS: PCP Internal Medicine; Visit Provider Nurse Practitioner
DX: R07.9 Chest pain, unspecified (principal); R00.0 Tachycardia, unspecified; R94.31 Abnormal electrocardiogram [ECG] [EKG]
CPT/HCPCS: 99204

== ENCOUNTER → 2023-09-04 14:51 | Outpatient (BNVA) | payer OTHER, SELFPAY | PROVIDERS: PCP Internal Medicine; Visit Provider Nurse Practitioner | DX: R07.9 Chest pain, unspecified (principal); R00.0 Tachycardia, unspecified; R94.31 Abnormal electrocardiogram [ECG] [EKG] | CPT/HCPCS: 99202 ==

== ENCOUNTER → 2023-09-26 10:53 | Outpatient (REF) | payer OTHER, SELFPAY ==
--- NOTE | 2023-09-26 11:00 | CA_ITS ---
Transthoracic Echocardiogram Patient (Last, First, Middle): Ruddy Salinas, Gender: Male Date of : 1985 Age: 38 Procedure Date: 09/26/2023 Procedure Type: Transthoracic Echocardiogram Location: OP Height: 170.18 cm Weight: 78.47 kg BSA: 1.90 m2 Heart Rate: 100 bpm BP: 118 / 76 mmHg Social Media Job Titles: TO Referring MD: Yesenia Pollard FRONT END ENGINEER Symptoms: R07.9 - Chest pain, unspecified Study Quality: Adequate ECG Rhythm: Sinus Conclusions: - The left ventricular systolic function is normal. The calculated ejection fraction is 60% by biplane method. - No obvious valvular pathology seen on this study. Findings Procedure Information Contrast agent, definity, is being given per protocol without apparent complications. Left Ventricle Normal left ventricular cavity size. There is normal left ventricular wall thickness. The left ventricular systolic function is normal. The calculated ejection fraction is 60% by biplane method. There is no evidence of regional wall motion abnormalities. Diastolic function is normal for age. Right Ventricle Normal right ventricular cavity size and systolic function. Atria Both atria are normal in size. Aortic Valve There is a normal trileaflet aortic valve. There is no aortic valve stenosis. There is no aortic valve regurgitation. Mitral Valve The mitral valve appears normal. There is no mitral valve regurgitation. There is no mitral valve stenosis. Pulmonic Valve The pulmonic valve is likely normal. Tricuspid Valve Normal tricuspid valve structure. There is trace tricuspid valve regurgitation. There is no evidence of pulmonary hypertension. Great Vessels The asc aorta is normal in size. Venous The inferior vena cava is normal in size and collapses greater than 50% with inspiration. Pericardium/Pleural There is no evidence of pericardial effusion. Prior Study Comparison No significant change compared to prior study dated: 06/27/2017. Recommendations, Care & Conclusions No obvious valvular pathology seen on this study. Measurements 2D Linear Measurements IVSd: 0.92 0.6-0.9/0.6-1.0 cm LVIDd: 4.51 3.9-5.3/4.2-5.9 cm LVIDd Index: 2.37 2.4-3.2/2.2-3.1 cm/m2 LVIDs: 2.93 2.0-3.6 cm LVPWd: 0.85 0.7-1.1 cm LA Diam: 2.80 2.7-3.8/3.0-4.0 cm LAIDs Index: 1.47 1.5-2.3 cm/m2 LV Mass: 161.81 67-162/88-224 g LV Mass Index: 85.16 43-95/49-115 g/m2 LVOT Diam: 2.20 3.0+(-)1.3 cm 2D Systolic Function EF 4C: 62.60 >55% EF 2C: 58.70 >55% EF BiP: 59.80 >55% Mitral Valve MV Pk E: 0.54 MV PK A: 0.65 MV Decel Time: 136.00 E/A: 0.80 E'Lateral: 14.10 E'Medial: 7.40 E/E' Med: 7.40 E/E' Lat: 3.90 PHT: 40.00 MVA PHT: 5.50 Decel [place]: 4.01 Aortic Valve AoV Pk Jose L: 1.31 AoV Mn Jose L: 0.93 AoV VTI: 0.21 AoV Pk Grad: 7.00 Aov Mn Grad: 4.00 BIRGIT Cont.VTI: 3.31 LVOT LVOT Pk Jose L: 1.24 LVOT Mn Jose L: 0.71 LVOT VTI: 0.18 LVOT Pk Grad: 6.00 LVOT Mn Grad: 3.00 LVOT Diam: 2.20 LVOT Area: 3.80 Diastolic Function MV Pk E: 0.54 MV Pk A: 0.65 E/A: 0.80 E'Medial: 7.40 E/E' Med: 7.40 E' Laterial: 14.10 E/E' Lat: 3.90 Right Ventricle TAPSE (mm): 24.00 TVS' Jos El: 13.30 Tricuspid Valve RA Press: 3.00 Great Vessels Aorta Sinus of Valsalva: 3.39 2.0-3.5 cm Ao Asc: 3.10 2.1-3.4 cm Updated in Other Vendor System with Status of Final Bentley Kent MD electronically signed on 09/28/2023 2:05:31 PM with status of Final
--- NOTE | 2023-09-26 11:00 | HM_ITS ---
Conclusion: 1. Patient was monitored for total period of 1 day and 23 hours 2. Baseline was normal sinus rhythm with average heart of 84 beats per minute 3. No significant pauses noted 4. Rare to occasional PVCs noted with total burden of 0.14%, all of them isolated 5. No patient reported events MTDD
== END ==
LOC: HO.CARD 10:53
PROVIDERS: PCP Internal Medicine; Visit Provider Nurse Practitioner
DX: R07.9 Chest pain, unspecified (principal); R00.0 Tachycardia, unspecified
CPT/HCPCS: 93225; 93306; Q9957

== ENCOUNTER → 2023-09-26 11:00 | Outpatient (BNV) | payer OTHER, SELFPAY | PROVIDERS: PCP Internal Medicine; Visit Provider Internal Medicine | DX: I49.3 Ventricular premature depolarization (principal) | CPT/HCPCS: 93227; 93306 ==

== ENCOUNTER → 2023-10-07 08:58 | Outpatient (REF) | payer OTHER, SELFPAY ==
--- NOTE | ~2023-10-07 | NM_ITS ---
EXERCISE MYOCARDIAL PERFUSION STUDY INDICATION: Chest pain TECHNIQUE: The patient was brought in for an exercise perfusion study on 10/07/2023. Patient performed exercise as per Franky protocol and was injected 25 mCi of sestamibi once target heart rate was achieved. Images were obtained using the SPECT gamma camera interlaced with the gating device. Images were obtained in supine position. Resting perfusion study was performed on 10/08/2023. Patient was administered 25 mCi of sestamibi intravenously at rest. Images were then obtained in supine position. Total DLP 76mGy-cm. Images were processed with the software and compared side to side in short axis, horizontal long axis and vertical long axis views. FINDINGS: Raw images were reviewed. The stress perfusion study showed mildly diminished tracer uptake along the inferior wall. There is improvement with CT attenuation correction suggestive of diaphragmatic attenuation artifact. The gated study shows normal LV systolic function with calculated LVEF of 64%. LV cavity is normal in size. The gated study shows normal wall thickening and contraction of segments. Resting study shows diminished tracer uptake along the inferior wall, towards the base. There is improvement with CT attenuation correction suggestive of diaphragmatic attenuation artifact. Gating at rest reveals normal wall motion with ejection fraction at 63%. The findings are consistent with fixed basal inferior perfusion defect suspected from diaphragmatic attenuation artifact. NM/NM cardiolite stress test IMPRESSION: 1. Myocardial perfusion imaging study shows likely normal myocardial perfusion. 2. Gated LVEF is 64% during stress and 63% during rest. 3. Transient ischemic dilatation not present. EKG component of the chest reported separately. Electronically signed by: Bentley Kent MD 10/09/2023 08:31 AM EDT
--- NOTE | 2023-10-07 09:02 | CA_ITS ---
Acquisition Time: 2023-10-07 09:10:48 Total Exercise Time: 00:05:19 Test Indications: HUDSON EKG, TACHYCARDIA Medications: SEE H Protocol: FRANKY Max HR: 162 BPM 89% of Pred: 181 BPM Max BP: 158/074 mmHG Max Work Load: 7.0 METS Exercise stress test exercise 5 min 19 sec of Franky protocol achieving 89% MPHR, 6/10 at peak and down to a 3/10 during recovery walk and completely resolved bny 3 min 30 sec recovery, with mild SOB, with isolated PVCs, with stress lead placement had downsloping in leads 2, 3, aVF, V3-V6, but in 12 lead limb placement scooping noted in 2, V5-v6. depression noted in lead V4. Nuclear images pending. Test reviewed with Dr. Cervantes. abnormalities in leads 2, 3, aVF, V4-V6 resolved with 12 lead limb lead placement. Referred By: Yesenia Pollard Overread By: Yesenia oPllard
== END ==
LOC: HO.CARD 08:58
PROVIDERS: PCP Internal Medicine; Visit Provider Nurse Practitioner
DX: R07.9 Chest pain, unspecified (principal); R00.0 Tachycardia, unspecified; R94.31 Abnormal electrocardiogram [ECG] [EKG]
CPT/HCPCS: 78452; 93017; A9500

== ENCOUNTER → 2023-10-07 09:02 | Outpatient (BNV) | payer OTHER, SELFPAY | PROVIDERS: PCP Internal Medicine; Visit Provider Nurse Practitioner | DX: R07.9 Chest pain, unspecified (principal) | CPT/HCPCS: 78452; 93016; 93018 ==

== ENCOUNTER 2023-10-31 14:44 | Outpatient (AMB) | payer OTHER, SELFPAY ==
[2023-10-31 15:22] VITALS: BP 128/72; PULSE 78; BMI 25.8
--- NOTE | 2023-10-31 15:22 | A.OFFVIS_ITS ---
Vital Signs 10/31/23 15:22 Height 5 ft 8 in Weight 170 lb BMI 25.8 BP 128/72 Blood Pressure Location Lt brachial Position Sitting Pulse 78 Pulse Source Pulse Oximeter Intake Visit Reasons: 2 mth f/up ett/ echo/holter Allergies Penicillins [PENICILLINS] Allergy (Intermediate, Verified 10/31/23 15:37) HIVES Medication List - Last Reconciled 10/31/23 by Yesenia Pollard NP albuterol sulfate 90 mcg/actuation 2 puffs inhalation Q4-6H PRN citalopram 10 mg PO DAILY 90 days fluticasone propionate 50 mcg/actuation (Allergy Relief (fluticasone)) 2 sprays intranasal DAILY 30 days meclizine 25 mg PO DAILY PRN omeprazole 20 mg PO DAILY PRN HPI Comments Details: 38-year-old male presents today for a follow-up. He was seen by this office some time ago regarding chest pains. He has been having chest pains again since March which has improved. He states they occured randomly and has woken him up at night. It was mostly left chest to his neck. They now come and go and are very mild. He denies any pains or shortness of breath on exertion. He does not drink caffeine, use illicit drugs, or smoke. He eats low salt and sugar. He states his heart rate is sometimes high but also has improved. He has a history of anxiety. depression. GERD, and dyslipidemia. He reports he is very anxious as his family has heart issues. [facility] Medical History Tachycardia Asthma Physical exam Chronic GERD Hypovitaminosis D Chronic allergic rhinitis due to pollen ROSE (generalized anxiety disorder) Mild major depression, single episode Depression with anxiety Dyslipidemia Surgical History No pertinent past surgical history Family History Mother Diabetes Hypertension Myocardial infarction Father Diabetes Family/Other Mental health disorder Social History Housing: Apartment Alcohol intake: never Patient Tobacco Use Status: Never used Tobacco e-Cigarette/Vaping Use: Never Used Second Hand Smoke Exposure: No service: No Current occupational status: unemployed Cognitive needs: No Hearing needs: No Vision needs: No Review of Systems Const Denies weakness ENT Denies dizziness Card Denies chest pain, Denies chest pain with activity, Denies syncope, Denies rapid heart rate, Denies pedal edema, Denies edema, Denies leg edema, Denies lightheadedness, Denies palpitations, Denies dyspnea, Denies dyspnea on exertion and Denies orthopnea Resp Denies cough, Denies dyspnea and Denies dyspnea on exertion GI Denies hematochezia and Denies change in stool character Musc Denies abnormal gait, Denies muscle cramps, Denies muscle weakness, Denies numbness, Denies radiating pain into limb and Denies tingling Neuro Denies abnormal gait, Denies dizziness, Denies syncope, Denies numbness, Denies tingling and Denies weakness Endo Denies palpitations Physical Exam Vital Signs: Last Vital Signs Pulse 78 10/31/23 15:22 BP 128/72 10/31/23 15:22 BMI result Body Mass Index 25.8 Const General: healthy appearing and no acute distress Orientation/consciousness: patient oriented x3 HEENT Head: Yes normal to inspection Eyes General: appearance normal, both eyes and all related structures Neck Neck: Yes normal visual inspection Chest Chest palpation & inspection: normal inspection of the chest Resp Effort & Inspection: normal respiratory effort Auscultation: clear to auscultation bilaterally Cardio Jugular venous distension: no JVD Palpation: normal PMI Rate: regular rate Rhythm: regular rhythm Heart sounds: S1 normal heart sound present, S2 normal heart sound present, no click, no gallops, no murmurs and no rubs GI Inspection: Yes normal to inspection Palpation (GI): Soft to palpation Skin General skin exam: no rashes or lesions noted Neuro General: patient oriented x3 Extrem General: Yes normal to inspection Psych Appearance: grossly normal Results Reviewed Results Reviewed: NM/NM cardiolite stress test IMPRESSION: 1. Myocardial perfusion imaging study shows likely normal myocardial perfusion. 2. Gated LVEF is 64% during stress and 63% during rest. 3. Transient ischemic dilatation not present. Assessment & Plan Assessment & Plan (1) Tachycardia: Code(s): R00.0 - Tachycardia, unspecified Category: Medical (2) Chest pain: Code(s): R07.9 - Chest pain, unspecified Category: Medical Plan Myocardial imaging shows normal myocardial perfusion. Holter shows normal sinus rhythm with an average heart rate of 84 beats per minute. With rare to occasional PVCs. Triggers for tachycardia and palpitations reviewed with patient. Signs and symptoms of angina reviewed. Adequate hydration and continue to work with his mental health provider to help with anxieties advised. Avoidance of stimulants. Due to testing patient wishes to follow up as needed. We will call us if needed. Emergency care if needed. Coding Level of Care Code Est Pt Level 3 (44602) Diagnoses Tachycardia R00.0 Chest pain R07.9
== END 2023-10-31 15:55 | disposition home or self-care (01) ==
PROVIDERS: PCP Internal Medicine; Visit Provider Nurse Practitioner
DX: R00.0 Tachycardia, unspecified (principal); R07.9 Chest pain, unspecified
CPT/HCPCS: 99213

== ENCOUNTER → 2023-10-31 14:44 | Outpatient (BNVA) | payer OTHER, SELFPAY | PROVIDERS: PCP Internal Medicine; Visit Provider Nurse Practitioner | DX: R00.0 Tachycardia, unspecified (principal); R07.9 Chest pain, unspecified | CPT/HCPCS: 99212 ==

== ENCOUNTER 2023-11-25 09:27 | Outpatient (REF) | payer OTHER, SELFPAY ==
[2023-11-25 09:41] LABS: MANUAL DIFF FLAG NO
[2023-11-25 10:14] LABS: Basophils Percent Auto 0.5 % (0-2); Eosinophils Absolute Auto 0.1 X10*3/uL (0.0-0.4); Eosinophils Percent Auto 1.1 % (0-4); Hemoglobin 14.3 g/dl (14.0-18.0); Imm Gran Abs Auto 0.02 X10*3/uL (0.00-0.03); Imm Gran Pct Auto 0.3 % (0.0-0.4); Lymphocytes Absolute Auto 2.3 X10*3/uL (1.2-4.9); Lymphocytes Percent Auto 31.1 % (20-40); Mean Corpuscular HGB Conc 33.3 g/dl (31.0-36.0); Mean Corpuscular Hemoglobin 28.6 pg (27.0-33.0); Mean Platelet Volume 11.3 fL (9.4-12.4); Monocytes Absolute Auto 0.6 X10*3/uL (0.1-1.2); Monocytes Percent Auto 7.9 % (2-11); Neutrophils Absolute Auto 4.4 x10*3/uL (2.0-8.3); Neutrophils Percent Auto 59.1 % (45-73); Platelet Count 194 X10*3/uL (160-400); Red Cell Distribution Width 13.6 % (11.0-16.0); White Blood Count 7.5 X10*3/uL (4.8-10.8)
[2023-11-25 10:51] LABS: Alanine Aminotransferase 29 U/L (0-40); Albumin Level 4.1 g/dL (3.5-5.0); Alkaline Phosphatase 54 U/L (39-117); Anion Gap 12 (12-20); Aspartate Amino Transferase 20 U/L (5-37); Bilirubin Total 0.5 mg/dL (0.0-1.0); Blood Urea Nitrogen 10 mg/dL (9-16); Calcium 9.3 mg/dL (8.4-10.2); Carbon Dioxide 31 mmol/L (22-29); Chloride 103 mmol/L (96-108); Cholesterol 177 mg/dL (<200); Estimated Glomerular Filt Rate > 60; Glucose Fasting 91 mg/dL (60-99); HDL Cholesterol 34 mg/dL (>40); LDL Cholesterol Calculated 124 mg/dL (<100); Potassium 3.8 mmol/L (3.3-5.1); Sodium 142 mmol/L (135-145); Total Protein 6.7 g/dL (6.5-8.0); Triglycerides 97 mg/dL (<150)
[2023-11-25 10:57] LABS: Vitamin D 25-OH Total 21.5 ng/mL (>30)
== END 2023-11-25 09:28 | disposition home or self-care (01) ==
LOC: HO.LAB 09:27
PROVIDERS: PCP Internal Medicine; Visit Provider Internal Medicine
DX: K21.9 Gastro-esophageal reflux disease without esophagitis (principal); E55.9 Vitamin D deficiency, unspecified; E78.5 Hyperlipidemia, unspecified
CPT/HCPCS: 36415; 80053; 80061; 82306; 85025

== ENCOUNTER 2023-11-26 15:05 | Outpatient (AMB) | payer OTHER, SELFPAY ==
[2023-11-26 15:20] VITALS: BP 126/72; PULSE 101; O2SAT 98; BMI 25.8
--- NOTE | 2023-11-26 15:20 | A.OFFPC_ITS ---
Vital Signs 11/26/23 15:20 Height 5 ft 8 in Weight 170 lb BMI 25.8 BP 126/72 Blood Pressure Location Lt brachial Position Sitting Pulse 101 H Pulse Source Pulse Oximeter Pulse Oximetry (%) 98 Oxygen Delivery Method Room Air Intake Visit Reasons: PE Thread Trimmer Required: No Accompanied by: Self / Same As Patient Allergies Penicillins [PENICILLINS] Allergy (Intermediate, Verified 11/26/23 15:35) HIVES Medication List - Last Reconciled 11/26/23 by Liberty Gooden MD albuterol sulfate 90 mcg/actuation 2 puffs inhalation Q4-6H PRN citalopram 10 mg PO DAILY 90 days fluticasone propionate 50 mcg/actuation (Allergy Relief (fluticasone)) 2 sprays intranasal DAILY 30 days omeprazole 20 mg PO DAILY PRN Tobacco use date assessed: 11/26/23 Dental Screening Dental Screen Date: 11/26/23 Did you have a dental visit in the last 12 months?: No Did you have a dental problem in the last 6 months where you did not have access to dental care?: No HPI HPI Comments History of Present Illness Details This is a 38-year-old male with mild major depression that comes for his physical exam. Depression has been well controlled with citalopram. No family history of colon cancer. No chest pain or shortness on breath. [facility] Medical History Tachycardia Asthma Physical exam Chronic GERD Hypovitaminosis D Chronic allergic rhinitis due to pollen ROSE (generalized anxiety disorder) Mild major depression, single episode Depression with anxiety Dyslipidemia Surgical History No pertinent past surgical history Family History Mother Diabetes Hypertension Myocardial infarction Father Diabetes Family/Other Mental health disorder Social History Housing: Apartment Alcohol intake: never Patient Tobacco Use Status: Never used Tobacco e-Cigarette/Vaping Use: Never Used Second Hand Smoke Exposure: No service: No Current occupational status: unemployed Cognitive needs: No Hearing needs: No Vision needs: No Questionnaire PHQ-9 Over the last 2 weeks, how often have you been bothered by any of the following problems? 1. Little interest or pleasure in doing things: not at all 2. Feeling down, depressed, or hopeless: not at all 3. Trouble falling or staying asleep, or sleeping too much: not at all 4. Feeling tired or having little energy: not at all 5. Poor appetite or overeating: not at all 6. Feeling bad about yourself - or that you are a failure or have let yourself or your family down: not at all 7. Trouble concentrating on things, such as reading the newspaper or watching television: not at all 8. Moving or speaking so slowly that other people could have noticed. Or the opposite - being so fidgety or restless that you have been moving around a lot more than usual: not at all 9. Thoughts that you would be better off or of hurting yourself in some way: not at all Total score: 0 Depression Screening Interpretation: Negative Depression Screening Done: Yes 14051 - PHQ-9 Billing: Yes Source: Developed by Drs. Tomas Gillis, Jaclyn Ruiz, Jatinder Begum and colleagues, with an educational corby from [employer]. Thrive Questionnaire Date Thrive assessed: 07/23/23 I am a: Patient What is your living situation today?: I have a steady place to live Within the past 12 months, did the food you bought not last and you didn't have the money to get more?: I choose not to answer this question Within the past 12 months, did you worry whether your food would run out before you got money to buy more?: I choose not to answer this question Do you have trouble paying for medicines?: No Do you have trouble getting transportation to medical appointments?: No Do you have trouble paying your heating and electricity bill?: No Do you have trouble taking care of your child, family member or friend?: No Do you have trouble with day-to-day activities such as bathing, preparing meals, shopping, managing finances, etc.?: No Are you currently unemployed and looking for a job?: No Are you interested in more education?: Yes Please select the resources that you would like help with: Education Currently or been in a relationship where the following occur: No concerns reported THRIVE Score: 0 AUDIT C Alcohol Use Questionnaire (AUDIT-C) 1. How often do you have a drink containing alcohol?: Never 2. How many drinks containing alcohol do you have on a typical day when you are drinking?: 1 or 2 (0) 3. How often do you have six or more drinks on one occasion?: Never Total Score: 0 Score Reviewed/Action Taken: No ROSE-7 AMB Questionnaire ROSE-7 Date ROSE - 7 assessed: 07/23/23 Feeling nervous, anxious, or on edge: 1 = Several days Not being able to stop or control worryin = Several days Worrying too much about different things: 1 = Several days Trouble relaxin = Several days Being so restless that it is hard to sit still: 1 = Several days Becoming easily annoyed or irritable: 1 = Several days Feeling afraid as if something awful might happen: 1 = Several days Total ROSE-7 score (0-4 normal; 5-9 mild; 10-14 moderate; 15-21 severe): 7 Source: Developed by Drs. Tomas Gillis, Jaclyn Ruiz, Jatinder Begum and colleagues, with an educational corby from [employer]. ROSE-7 Assessment Billing ROSE-7 Assessment Tool: ROSE-7 Assessment 62297 Review of Systems Const All systems reviewed & are unremarkable except as noted in HPI and below Card Denies chest pain at rest, Denies chest pain with activity, Denies edema, Denies irregular heart rhythm, Denies claudication, Denies dyspnea, Denies dyspnea on exertion, Denies orthopnea, Denies paroxysmal nocturnal dyspnea and Denies slow heart rate Resp Denies cough, Denies dyspnea and Denies dyspnea on exertion Physical exam (Primary Care) Vital Signs: Last Vital Signs Pulse 101 H 11/26/23 15:20 BP 126/72 11/26/23 15:20 Pulse Ox 98 11/26/23 15:20 Oxygen Delivery Method Room Air 11/26/23 15:20 BMI result Body Mass Index 25.8 Tobacco/Smoking Status: Tobacco use Status Tobacco use date assessed 11/26/23 11/26/23 15:23 Patient Tobacco Use Status Never used Tobacco 11/26/23 15:20 e-Cigarette/Vaping Use Never Used 11/26/23 15:20 PHQ-9: PHQ-9 Score PHQ-9: Total score 0 11/26/23 15:38 Depression Screening Interpretation: Negative Thrive Assessment: Date of Thrive Assessment Date Thrive assessed 07/23/23 11/26/23 15:20 Currently or been in a relationship where the following occur: No concerns reported [facility] Head: Yes normal to inspection, Yes normocephalic and Yes atraumatic Ears: external ears normal Eyes General: appearance normal, both eyes and all related structures Eyelids: Yes eyelids normal Conjunctivae: conjunctivae normal Neck Neck: Yes normal visual inspection and Yes supple Resp Effort & Inspection: normal respiratory effort Auscultation: clear to auscultation bilaterally Cardio Jugular venous distension: no JVD Rate: regular rate Rhythm: regular rhythm Heart sounds: S1 normal heart sound present and S2 normal heart sound present GI Inspection: Yes normal to inspection Palpation (GI): Soft to palpation and nontender Auscultation: normal bowel sounds Skin General skin exam: no rashes or lesions noted Neuro General: no focal motor deficits Extrem General: Yes full ROM Psych Appearance: grossly normal Coding Level of Care Code Est Pt Prev Care 18-39y(75186) Diagnoses Physical exam Z00.00 Mild major depression, single episode F32.0 Additional Codes ROSE-7 Assessment Billing - ROSE-7 Assessment Tool: ROSE-7 Assessment [id number] ([id number]) Time Spent (min) 30 Assessment & Plan Assessment & Plan (1) Physical exam: Code(s): Z00.00 - Encounter for general adult medical examination without abnormal findings Category: Medical Plan: Repeat in a year. (2) Mild major depression, single episode: Code(s): F32.0 - Major depressive disorder, single episode, mild Category: Medical Plan: Continue citalopram. Medications: Changed From omeprazole 20 mg PO DAILY PRN K21.9 - Gastro-esophageal reflux disease without esophagitis To omeprazole 20 mg PO DAILY 90 caps 0RF 90 days K21.9 - Gastro-esophageal reflux disease without esophagitis
== END 2023-11-26 15:44 | disposition home or self-care (01) ==
PROVIDERS: PCP Internal Medicine; Visit Provider Internal Medicine
DX: Z00.00 Encounter for general adult medical examination without abnormal findings (principal); F32.0 Major depressive disorder, single episode, mild

== ENCOUNTER → 2023-11-26 15:05 | Outpatient (BNVA) | payer OTHER, SELFPAY | PROVIDERS: PCP Internal Medicine; Visit Provider Internal Medicine | DX: Z00.00 Encounter for general adult medical examination without abnormal findings (principal); F32.0 Major depressive disorder, single episode, mild | CPT/HCPCS: 96127; 99395 ==

== ENCOUNTER 2024-03-21 16:44 | Emergency (ER) | payer OTHER, SELFPAY ==
--- NOTE | ~2024-03-21 | XR_ITS ---
CLINICAL HISTORY: cough Chest Radiographs, 2 views Comparison: 07/29/23 Findings: No cardiomegaly. Normal mediastinal contours. No pneumothorax. No opacity. No pleural effusion. Normal upper abdomen. No acute fracture. Impression: No acute findings. This document has been electronically signed by: Basia Ervin MD on 03/21/2024 17:56:27
[2024-03-21 16:46] VITALS: BP 127/84; PULSE 119; RESP 18; TEMP 36.9; O2SAT 98; BMI 23.6
--- NOTE | 2024-03-21 16:46 | ED_ITS ---
HPI - General Adult General Chief complaint: Fever Stated complaint: fever and cough Time Seen by Provider: 03/21/24 18:30 Source: patient Mode of arrival: ambulatory Limitations: no limitations History of Present Illness ED Provider: Alma Llanos PA-C HPI narrative: Patient is a 39 year old assigned male at with a history of ROSE, and MDD, presenting to the emergency department today with a fever and nausea. Patient states that everyone in his house is sick with the same thing but he needs a note for work. Patient denies any dizziness, lightheadedness, abdominal pain, vomiting, chills, blurry vision, double vision, loss of vision, chest pain, difficulty breathing, shortness of breath, back pain, night sweats, pain with urination, increased urinary frequency, increased urinary urgency, blood in his urine or stool, syncope or a near syncopal episode, recent trauma or falls, bowel incontinence, bladder incontinence, or any other complaints at this time. Onset (ago): day(s) (2) Relieving factors: none Exacerbating factors: none Associated symptoms: fever/chills and nausea/vomiting Treatments prior to arrival: none Related Data Previous Rx's ?Medication ?Instructions ?Recorded albuterol sulfate 90 mcg/actuation 2 puff inhalation Q4-6H PRN 05/21/21 aerosol inhaler shortness of breath or wheezing #8.5 grams fluticasone propionate 50 2 spray intranasal DAILY 30 days 07/18/21 mcg/actuation nasal #16 grams spray,suspension (Allergy Relief (fluticasone)) citalopram 10 mg tablet 10 mg PO DAILY 90 days #90 tabs 07/23/23 omeprazole 20 mg capsule,delayed 20 mg PO DAILY 90 days #90 caps 11/26/23 release Allergies Allergy/AdvReac Type Severity Reaction Status Date / Time Penicillins [PENICILLINS] Allergy Intermediate HIVES Verified 03/21/24 16:48 Review of Systems Constitutional: Constitutional: Reports no additional constitutional complaints, Denies chills, Reports fever(s) and Denies night sweats Eyes: Eyes: Reports no additional eye complaints, Denies blurry vision, Denies change in vision, Denies diplopia, Denies eye discharge, Denies loss of vision and Denies eye pain ENT: Denies dizziness Cardiovascular: Cardiovascular: Reports no additional cardiovascular complaints, Denies chest pain, Denies lightheadedness, Denies Loss of Consciousness and Denies dyspnea Respiratory: Respiratory: Reports no additional respiratory complaints and Denies dyspnea Gastrointestinal: Gastrointestinal: Reports no additional gastrointestinal complaints, Denies abdominal pain, Denies melena, Denies hematochezia, Denies change in bowel habits, Denies change in stool character and Reports nausea Genitourinary: Genitourinary: Reports no additional male genitourinary complaints, Denies hematuria, Denies oliguria, Denies difficulty urinating, Denies dysuria, Denies urinary frequency, Denies urinary hesitancy, Denies urinary incontinence and Denies urinary urgency Musculoskeletal: Musculoskeletal: Reports no additional musculoskeletal complaints, Denies numbness and Denies tingling Neurologic: Denies dizziness, Denies loss of vision, Denies numbness and Denies tingling Psychiatric: Psychiatric: Reports no additional psychiatric complaints Endocrine: Endocrine: Reports no additional endocrine complaints Hematologic/Lymphatic: Hematologic/Lymphatic: Reports no additional hematolog ic/lymphatic complaints Allergic/Immunologic: Allergic/Immunologic: Reports no additional allergic/immunologic complaints [facility] Past Medical History Attestation statement: The following information was validated with the patient. Source: old records reviewed and nursing notes reviewed Medical History Tachycardia Asthma Physical exam Chronic GERD Hypovitaminosis D Chronic allergic rhinitis due to pollen ROSE (generalized anxiety disorder) Mild major depression, single episode Depression with anxiety Dyslipidemia Surgical History No pertinent past surgical history Family History Family History Mother Diabetes Hypertension Myocardial infarction Father Diabetes Family/Other Mental health disorder Social History Social History Housing: Apartment Alcohol intake: never Patient Tobacco Use Status: Never used Tobacco e-Cigarette/Vaping Use: Never Used Second Hand Smoke Exposure: No Advance Directives: No Advance Directives Information Provided: No service: No Current occupational status: unemployed Cognitive needs: No Hearing needs: No Vision needs: No Physical Exam ED Vital Signs: Vital Signs - 24 hr 03/21/24 16:46 03/21/24 18:31 03/21/24 18:33 Temperature 98.5 F 98.9 F 98.9 F Pulse Rate 119 H 130 H 130 H Respiratory Rate 18 18 18 Blood Pressure 127/84 161/94 H 161/94 H Pulse Oximetry 98 95 95 Oxygen Delivery Method Room Air Room Air BMI result Body Mass Index 23.6 Const General: cooperative, no acute distress, alert and awake Nutritional Appearance: well nourished Orientation/consciousness: patient oriented x3 Limitations: no limitations HENMT Head: Yes normal to inspection and Yes atraumatic Ears: hearing grossly normal bilaterally and external ears normal General nose exam: Normal external nose present, no nasal discharge noted and no epistaxis Face and sinus: Yes normal facial exam, No abrasion and No laceration Mouth: Normal oral and palatal mucosa present, no drooling and no muffled voice Eyes General: appearance normal, both eyes and all related structures Periorbital: periorbital findings normal Eyelids: Yes eyelids normal Conjunctivae: conjunctivae normal Pupils: Equal, round and reactive pupils present EOM: EOMs intact bilaterally Neck Neck: Yes normal visual inspection, Yes full ROM and Yes no lymphadenopathy Chest Chest palpation & inspection: normal inspection of the chest Resp Effort & Inspection: normal respiratory effort and able to speak in complete sentences GI Inspection: Yes normal to inspection Neuro General: patient oriented x3, moves all extremities and CN's II-XI intact bilaterally Cranial nerves: Yes Equal, round and reactive pupils present Cognition (Neuro): normal cognition Extrem General: Yes normal to inspection, Yes full ROM and Yes capillary refill normal Psych Appearance: grossly normal Mental Status: mental status grossly normal Affect: normal affect Attitude: cooperative Thought process: Normal thought process present Thought content: Normal thought content present Insight: Good insight present (Psych) Course Course Course Narrative: RME performed by Alma Llanos PA-C. Patient is a 39 year old assigned male at presenting to the emergency department with a fever and nausea. Patient states everyone in his house is sick with similar symptoms. Patient states that he has a fever and nauseous but has not thrown up. Detailed physical exam and review of systems are deferred to the manager primary. Swabs ordered. Patient placed back in the waiting room pending room availability and results. Medical Decision Making Medical Decision Making MDM Narrative: Patient is a 39 year old assigned male at with a history of ROSE, and MDD, presenting to the emergency department today with a fever and nausea. Patient's physical exam was unremarkable. Patient was tachycardic during his time here however, the patient was feeling very anxious about his work situation as he had already called out 2 days and knew his COVID-19 diagnosis would mean missing more days. Patient was not hypoxic. Patient's chest x-ray showed no acute process. Patient's COVID-19 test was positive. I explained my physical exam findings as well as all test results to the patient. I answered all questions asked by the patient. I stressed the importance of the patient taking his medication as directed (either prescribed or as the over the counter packaging recommends). I stressed the importance of the patient following up with his primary care provider. I stressed the importance of the patient returning to the emergency department immediately if his symptoms were to worsen or if he were to develop any dizziness, shortness of breath, difficulty breathing, chest pain, blurry vision, loss of vision, nausea, vomiting, abdominal pain, fever, chills, back pain, or any other complaints. Patient verbalized agreement and understanding with this treatment plan and discharge. Differential Diagnosis Differential Diagnoses: The differential diagnosis associated with the presentation includes COVID-19 Influenza RSV PNA Admission/Observation Consideration of admission/observation: Escalation of care including admission/observation considered Patient would have been admitted to the hospital had his work up had any findings where hospital admission was appropriate and his clinical presentation warranted hospital admission. Lab Data [facility] Lab Attestation statement: I reviewed the patient's lab results. My interpretation of these results are in the [facility] Rationale portion of this note. Labs: Lab Results 03/21/24 Range/Units 17:01 Influenza Type A (PCR) NEGATIVE (Negative) Influenza Type B (PCR) NEGATIVE (Negative) RSV RNA Qual (PCR) NEGATIVE (Negative) SARS-CoV-2 RNA (RT-PCR) POSITIVE A (Negative) Independent Interpretation I performed an independent interpretation of an: Plain X-Ray Interpretation: My interpretation is in agreement with the radiologist's impression of this imaging study. CLINICAL HISTORY: cough Chest Radiographs, 2 views Comparison: 07/29/23 Findings: No cardiomegaly. Normal mediastinal contours. No pneumothorax. No opacity. No pleural effusion. Normal upper abdomen. No acute fracture. Impression: No acute findings. This document has been electronically signed by: Basia Ervin MD on 03/21/2024 17:56:27 Dictated By: Basia Celestin MD Signed By: Electronically signed by Basia Celestin MD 03/21/24 [id number] Radiology Impression Discussion of test interpretation with radiology: I have reviewed the radiologist's reading. Tests considered The following testing was considered but not selected: I considered obtaining an EKG, CBC, CMP, and troponin however, the patient's current clinical presentation and work up did not warrant this. I discussed this with the patient who verbalized understanding and agreement. Discharge Plan Discharge Clinical Impression: COVID-19 Patient Disposition: Home, Self-Care Instructions: COVID-19 (Coronavirus Disease 2019) (ED) Additional Instructions: You are COVID-19 positive as of 03/21/2024. Follow up with your primary care provider. Return to the emergency department immediately if your symptoms worsen or if you develop any dizziness, shortness of breath, difficulty breathing, chest pain, blurry vision, loss of vision, nausea, vomiting, abdominal pain, fever, chills, back pain, or any other complaints. Prescriptions: No Action albuterol sulfate 90 mcg/actuation HFA aerosol inhaler 2 puff inhalation Q4-6H PRN (Reason: shortness of breath or wheezing) Qty: 8.5 0RF fluticasone propionate [Allergy Relief (fluticasone)] 50 mcg/actuation spray,suspension 2 spray intranasal DAILY 30 Days Qty: 16 1RF Rx Instructions: administer into each nostril citalopram 10 mg tablet 10 mg PO DAILY 90 Days Qty: 90 1RF omeprazole 20 mg capsule,delayed release(DR/EC) 20 mg PO DAILY 90 Days Qty: 90 0RF Referrals: Liberty Galicia MD [Primary Care Provider] - Stand Alone Forms: Work/School Release Interventions: ED Discharge Assessment Last Done: 03/21/24 18:33 Discharge Date/Time: 03/21/24 18:36 Print Language: Cambodian
[2024-03-21 17:58] LABS: Influenza A PCR NEGATIVE (Negative); Influenza B PCR NEGATIVE (Negative); Resp Syncy Virus RNA Qual PCR NEGATIVE (Negative); SARS COV2 PCR INHOUSE POSITIVE (Negative)
[2024-03-21 18:31] VITALS: BP 161/94; PULSE 130; RESP 18; TEMP 37.2; O2SAT 95
[2024-03-21 18:33] VITALS: BP 161/94; PULSE 130; RESP 18; TEMP 37.2; O2SAT 95
== END 2024-03-21 18:36 | disposition home or self-care (01) ==
PROVIDERS: Physician Assistant Medical; Emergency Provider Emergency Medicine; PCP Internal Medicine
DX: U07.1 COVID-19 (principal); R50.9 Fever, unspecified; R05.9 Cough, unspecified
CPT/HCPCS: 0241U; 71046; 99282; 99283

== ENCOUNTER → 2024-03-21 16:48 | Outpatient (BNV) | payer OTHER, SELFPAY | PROVIDERS: PCP Internal Medicine; Visit Provider Radiology Diagnostic Radiology | DX: R05.9 Cough, unspecified (principal) | CPT/HCPCS: 71046 ==